=== PATIENT | female | born 1955 | race Caucasian/White ===

== ENCOUNTER 2018-08-16 18:00 | Emergency (ER) | payer OTHER ==
--- NOTE | 2018-08-16 20:23 | RAD REPORT ---
EXAM DESCRIPTION: Ozzie Single View08/16/2018 8:18 pm CLINICAL HISTORY: Chest pain COMPARISON: October 2017 FINDINGS: The lungs appear clear of acute infiltrate. The heart is normal size IMPRESSION: No acute abnormalities displayed
[2018-08-16] MEDS ORDERED: NA CHLORIDE 0.9% 1,000 ML ONE ×2 (20:27→21:12)
[2018-08-16 20:32] LABS: Urine Blood NEGATIVE (NEG); Urine Glucose TRACE (NEG); Urine Protein NEGATIVE (NEG); Urine pH 5.5 (5.0-7.0)
[2018-08-16 20:37] LABS: Absolute Lymphocytes (CBC) 3.4 K/uL (0.7-4.9); Absolute Neutrophil 9.8 K/uL (1.8-8.0); Basophils % 0.4 % (0-1.3); Eosinophils % 1.8 % (0-4.4); Hematocrit 41.9 % (36.0-45.0); Lymphocytes % 23.5 % (15.3-44.8); MCH 29.4 pg (27.0-35.0); MCV 87.7 fL (80-100); MPV 8.7 fL (7.6-11.3); Monocytes % 7.1 % (3.3-12.3); RBC Red Blood Cell Count 4.77 M/uL (3.86-4.86)
[2018-08-16 20:38] LABS: Barbiturates NEGATIVE (NEGATIVE); Benzodiazepines POSITIVE (NEGATIVE); Cocaine NEGATIVE (NEGATIVE); METHAMPHETAM NEGATIVE (NEGATIVE); Methadone NEGATIVE (NEGATIVE); Opiates NEGATIVE (NEGATIVE); Phencyclidine NEGATIVE (NEGATIVE); THC Cannibis NEGATIVE (NEGATIVE)
--- NOTE | 2018-08-16 20:38 | RAD REPORT ---
EXAM DESCRIPTION: CT - Head Brain Wo Cont - 08/16/2018 8:13 pm CLINICAL HISTORY: Confusion/alteration of awareness COMPARISON: None. TECHNIQUE: Computed axial tomography of the head was obtained. IV contrast was not requested. All CT scans are performed using dose optimization technique as appropriate and may include automated exposure control or mA/KV adjustment according to patient size. FINDINGS: Approximately 4 centimeter low-density areas are present within the posterior frontal/ tem poral lobes bilaterally. An intracranial bleed is not seen . The ventricles are normal in caliber. No extra-axial fluid collection is noted. Fluid within the sinuses/ mastoids is not seen. IMPRESSION: 4 centimeter bilateral low-density areas within the posterior frontal/ temporal lobes ma y represent acute/subacute infarcts. An encephalitis is a another consideration. MRI with contrast is recommended
[2018-08-16 20:41] LABS: Protime INR 0.99
[2018-08-16 21:09] LABS: ALT/SGPT 24 U/L (12-78); AST/SGOT 20 U/L (15-37); Albumin 3.7 g/dL (3.4-5.0); Alkaline Phosphatase 80 U/L (45-117); BUN Blood Urea Nitrogen 12 mg/dL (7-18); Bicarbonate 25 mmol/L (21-32); Bilirubin Direct < 0.1 mg/dL (0-0.2); Bilirubin Total 0.6 mg/dL (0.2-1.0); CKMB Creatine Kinase MB < 1.0 ng/mL (0.3-3.6); Creatine Phosphokinase 74 U/L (26-192); Glucose Level 247 mg/dL (74-106); Magnesium 2.1 mg/dL (1.8-2.4); NT PRO-BNP 43 pg/mL (<125); Potassium 4.3 mmol/L (3.5-5.1); Protein, Total 7.8 g/dL (6.4-8.2); Sodium Level 138 mmol/L (136-145); Troponin (Emerg Dept Use Only) < 0.02 ng/mL (0.0-0.045)
--- NOTE | 2018-08-16 21:21 | ER ---
Nurse's Notes [facility] Name: Eve Jose Age: 63 yrs Sex: Female : 1955 Arrival Date: 08/16/2018 Time: 18:07 Bed 23 Private MD: Diagnosis: Cerebral infarction Presentation: 08/16 18:08 Presenting complaint: EMS states: pt confused, does not seem to understand when mg2 questions are asked, can imitate conversations but does not understand any responses, daughter states that she noticed her mom acting differently two days ago. Transition of care: patient was not received from another setting of care. Onset of symptoms is unknown. Risk Assessment: Do you want to hurt yourself or someone else? Patient reports no desire to harm self or others. Initial Sepsis Screen: Does the patient meet any 2 criteria? No. Patient's initial sepsis screen is negative. Does the patient have a suspected source of infection? No. Patient's initial sepsis screen is negative. Care prior to arrival: None. 18:08 Method Of Arrival: [place] [facility] [place] Acuity: IVETT 3 mg2 20:54 Presenting complaint:. mg2 Triage Assessment: 18:27 General: Appears well groomed, well developed, well nourished, Behavior is anxious, mg2 confused. Pain: Denies pain. EENT: No signs and/or symptoms were reported regarding the EENT system. Neuro: Level of Consciousness is awake, alert, confused, Oriented to person. Neuro: Moves all extremities. Speech normal to slurred, does not seem to understand answers to questions, will initiate conversations but not comprehend responses. Facial symmetry appears normal, Pupils are PERRLA, Intact. Cardiovascular: Patient's skin is warm and dry. Respiratory: Airway is patent Respiratory effort is even, unlabored, Respiratory pattern is regular, symmetrical. GI: No signs and/or symptoms were reported involving the gastrointestinal system. : No signs and/or symptoms were reported regarding the genitourinary system. Derm: No signs and/or symptoms reported regarding the dermatologic system. Musculoskeletal: No signs and/or symptoms reported regarding the musculoskeletal system. Historical: - Home Meds: 18:27 Lantus 10 units in AM Sub-Q soln [Active]; levothyroxine oral [Active]; Lantus 30 units mg2 at night Sub-Q soln [Active]; Novolog 100 unit/mL Sub-Q soln 14 unit after meals [Active]; Methotrexate Sodium three Oral 3 tabs once wkly [Active]; folic acid 1 mg Oral tab 1 tab once daily [Active]; - Immunization history:: Adult Immunizations up to date. - Social history:: Smoking status: unknown. - Ebola Screening: : No symptoms or risks identified at this time. Screenin:32 Abuse screen: Denies threats or abuse. Nutritional screening: No deficits noted. mg2 Tuberculosis screening: No symptoms or risk factors identified. Fall Risk None identified. 20:48 The patient is alert, able to follow commands. occasionally slurred speach The patient mg2 is not exhibiting difficulty speaking. The patient is exhibiting difficulty understanding words. The patient is able to swallow own secretions with no drooling or need for suction. Patient tolerated one teaspoon of water. No drooling, immediate coughing, gurgling, or clearing of the throat was noted. The patient tolerated 90mL of water. No drooling, immediate coughing, gurgling, or clearing of the throat was noted. The patient passed the bedside swallow screening. Oral medications may be given as ordered. Contact Physician for further diet orders. Assessment: 18:32 Reassessment: No changes from previously documented assessment. mg2 18:35 Reassessment: Ems reports that pt pulled 2 IV's out, en route. mg2 20:13 Reassessment: staff has been under one on one care for the last hour and a half, very mg2 confused Dr Mulligan and Donovan came in room to calm pt and try to explain the POC, but pt did not understand and would not allow us to start an IV, finally we were able to persuade her and an ultra sound was used to obtain an IV in the right upper arm by ALYSHA Hill. 21:25 Reassessment: report called to ALYSHA Schofield at [facility]. mg2 21:57 Reassessment: No changes from previously documented assessment. Patient and/or family mg2 updated on plan of care and expected duration. Pain level reassessed. EMS here for transports. Vital Signs: 18:27 BP 128 / 75; Pulse 108; Resp 18; Temp 99.0(O); Pulse Ox 96% on R/A; mg2 20:29 BP 143 / 95; Pulse 131; Resp 20; Pulse Ox 96% on R/A; mg2 21:57 BP 129 / 94; Pulse 103; Resp 18; Pulse Ox 98% on R/A; mg2 ED Course: 18:07 Patient arrived in ED. mg2 18:08 Jeet Douglass, ALYSHA is Primary Nurse. mg2 18:10 Triage completed. mg2 18:27 Arm band placed on left wrist. mg2 18:32 Patient has correct armband on for positive identification. Bed in low position. Call mg2 light in reach. Side rails up X2. Adult w/ patient. Pulse ox on. NIBP on. 18:32 No provider procedures requiring assistance completed. mg2 18:39 Donovan Johnston PA is PHCP. [facility] 18:39 Jonathan Bianchi MD is Attending Physician. [facility] 18:44 Nurse Practitioner and/or Physician Straightening Machine Operator to see patient. mg2 20:[address] via wheelchair. mg2 20:05 Initial lab(s) drawn, by ED staff, sent to lab. First set of blood cultures drawn mg2 Second set of blood cultures drawn Urine collected: clean catch specimen, clear, X-ray(s) taken. Inserted saline lock: 18 gauge in right upper arm, using aseptic technique. ,using aseptic technique. by pool Hill RN Blood collected. 20:05 Inserted 18 gauge 10 cm midline to right upper basilic vein on first attempt with fc difficulty. Pt very anxious and confused. Line with good blood return and flushes well. 20:13 CT completed. Patient tolerated procedure well. bq 20:14 CT Head Brain wo Cont In Process Unspecified. EDMS 20:17 X-ray completed. Patient tolerated procedure well. bb2 20:18 XRAY Chest (1 view) In Process Unspecified. EDMS 21:25 Patient transferred, IV remains in place. mg2 21:57 One-on-one care X 90 minutes. mg2 Administered Medications: 20:28 Drug: NS 0.9% 1000 ml Route: IV; Rate: 1 bolus; Site: right upper arm; Delivery: mg2 Primary tubing; 21:09 Drug: NS 0.9% 1000 ml Route: IV; Rate: 1 bolus; Site: right upper arm; Delivery: mg2 Primary tubing; 21:22 Drug: Rocephin - (cefTRIAXone) 2 grams Route: IVPB; Infused Over: 30 mins; Site: right mg2 upper arm; Point of Care Testing: Blood Glucose: 18:27 Blood Glucose: 189 mg/dL; mg2 Ranges: Outcome: 21:20 ER care complete, transfer ordered by . pravin 21:24 Transferred by ground [facility] [place] [facility] [place]. mg2 21:24 Condition: stable 21:24 Instructed on the need for transfer. 21:58 Patient left the ED. mg2 Signatures: Dispatcher [employer] EDMS Donovan Johnston PA PA jmm Quilty, Betty bq Chretien, Felicia RN RN Nieves [facility] Jeet Douglass RN RN mg2 Corrections: (The following items were deleted from the chart) 20:55 18:08 Presenting complaint: EMS states: pt confused, does not seem to understand when mg2 questions are asked, can imitate conversations but does not understand any responses mg2
--- NOTE | 2018-08-16 21:21 | EDPHYS ---
Physician Documentation [facility] Name: Eve Jose Age: 63 yrs Sex: Female : 1955 Arrival Date: 08/16/2018 Time: 18:07 Bed 23 Private MD: ED Physician Jonathan Bianchi HPI: 08/16 18:48 This 63 yrs old Female presents to ER via EMS with complaints of Altered jmm Mental Status. 18:48 The patient presents with confusion. Onset: The symptoms/episode began/occurred 2 jmm day(s) ago. Possible causes: unknown. Associated signs and symptoms: Pertinent positives: confusion. Current symptoms: In the emergency department the patient's symptoms are unchanged from the initial presentation. Patient's baseline: Neuro: alert and fully oriented, Motor: no deficits, Ambulation: walks without assistance, Speech: normal. This is a 63 year old female with a history of DM, lupus that presents to the ED with confusion beginning approx 2 days ago according to the family. States that the patient gave her abnormal texts and stated the patient would not understand commands beginning yesterday worsening today. . Historical: - Home Meds: 18:27 Lantus 10 units in AM Sub-Q soln [Active]; levothyroxine oral [Active]; Lantus 30 units mg2 at night Sub-Q soln [Active]; Novolog 100 unit/mL Sub-Q soln 14 unit after meals [Active]; Methotrexate Sodium three Oral 3 tabs once wkly [Active]; folic acid 1 mg Oral tab 1 tab once daily [Active]; - Immunization history:: Adult Immunizations up to date. - Social history:: Smoking status: unknown. - Ebola Screening: : No symptoms or risks identified at this time. ROS: 21:15 Neuro: Positive for altered mental status. jmm 21:15 Unable to obtain ROS due to altered mental status. Exam: 21:15 Head/Face: atraumatic. Chest/axilla: Normal chest wall appearance and motion. jmm 21:15 Constitutional: The patient appears awake, anxious. 21:15 Cardiovascular: Rate: tachycardic. 21:15 Respiratory: the patient does not display signs of respiratory distress, Respirations: normal, Breath sounds: are clear throughout. 21:15 Abdomen/GI: Inspection: abdomen appears normal, Bowel sounds: normal, Palpation: abdomen is soft and non-tender, in all quadrants. 21:15 Back: ROM is normal. 21:15 Musculoskeletal/extremity: ROM: intact in all extremities. 21:15 Skin: Appearance: Color: normal in color, petechiae, not noted. 21:15 Neuro: Orientation: Not oriented to person, time, Mentation: confused, unable to follow commands, responsive to pain, Memory: unable to test, Motor: moves all fours. 21:15 Psych: Behavior/mood is anxious. Vital Signs: 18:27 BP 128 / 75; Pulse 108; Resp 18; Temp 99.0(O); Pulse Ox 96% on R/A; mg2 20:29 BP 143 / 95; Pulse 131; Resp 20; Pulse Ox 96% on R/A; mg2 21:57 BP 129 / 94; Pulse 103; Resp 18; Pulse Ox 98% on R/A; mg2 MDM: 18:48 Patient medically screened. [facility] 20:45 Data reviewed: vital signs, nurses notes, radiologic studies, CT scan. ED course: TPA [facility] NOT ADMINISTERED. OUTSIDE OF WINDOW. ONSET OF SYMPTOMS 2 DAYS AGO. 21:14 Counseling: I had a detailed discussion with the patient and/or guardian regarding: the [facility] historical points, exam findings, and any diagnostic results supporting the discharge/admit diagnosis, radiology results, the need to transfer to another facility. ED course: I discussed the patient with Dr. Garcia whom will evaluate the patient. Patient accepted by Dr. Freeman. Dr. Mulligan was at bedside to evaluate the patient. Recommends 2 grams rocephin IV. . 08/16 18:50 Order name: Basic Metabolic Panel [facility] 08/16 18:50 Order name: CBC with Diff; Complete Time: 20:46 [facility] 08/16 18:50 Order name: Ckmb [facility] 08/16 18:50 Order name: CPK [facility] 08/16 18:50 Order name: LFT's; Complete Time: 21:11 [facility] 08/16 18:50 Order name: Magnesium; Complete Time: 21:11 [facility] 08/16 18:50 Order name: NT PRO-BNP [facility] 08/16 18:50 Order name: PT-INR; Complete Time: 20:43 [facility] 08/16 18:50 Order name: Ptt, Activated; Complete Time: 20:43 [facility] 08/16 18:50 Order name: Troponin (emerg Dept Use Only); Complete Time: 21:11 [facility] 08/16 18:50 Order name: Urine Drug Screen; Complete Time: 20:41 [facility] 08/16 18:51 Order name: Basic Metabolic Panel; Complete Time: 21:11 [facility] 08/16 18:51 Order name: CKMB Creatine Kinase MB; Complete Time: 21:11 [facility] 08/16 18:51 Order name: Creatine Phosphokinase; Complete Time: 21:11 [facility] 08/16 18:50 Order name: XRAY Chest (1 view); Complete Time: 20:25 [facility] 08/16 18:50 Order name: EKG; Complete Time: 18:51 [facility] 08/16 18:50 Order name: CT Head Brain wo Cont; Complete Time: 20:41 [facility] 08/16 18:51 Order name: NT PRO-BNP; Complete Time: 21:11 [facility] 08/16 18:54 Order name: TSH; Complete Time: 21:11 [facility] 08/16 19:30 Order name: AMMONIA; Complete Time: 20:46 08/16 19:30 Order name: Blood Culture Adult (2) 08/16 19:30 Order name: Procalcitonin 08/16 19:30 Order name: ABG 08/16 20:05 Order name: Lactate; Complete Time: 20:46 08/16 20:22 Order name: Urine Dipstick--Ancillary (enter results) 2 08/16 21:13 Order name: T3 Free [facility] 08/16 21:13 Order name: T4 Free [facility] 08/16 18:50 Order name: Cardiac monitoring; Complete Time: 19:08 [facility] 08/16 18:50 Order name: EKG - Nurse/Tech; Complete Time: 19:08 [facility] 08/16 18:50 Order name: IV Saline Lock; Complete Time: 20:13 [facility] 08/16 18:50 Order name: Labs collected and sent; Complete Time: 20:13 [facility] 08/16 18:50 Order name: O2 Per Protocol; Complete Time: 19:08 [facility] 08/16 18:50 Order name: O2 Sat Monitoring; Complete Time: 19:08 [facility] 08/16 18:50 Order name: Urine Dipstick-Ancillary (obtain specimen); Complete Time: 20:13 [facility] Administered Medications: 20:28 Drug: NS 0.9% 1000 ml Route: IV; Rate: 1 bolus; Site: right upper arm; Delivery: mg2 Primary tubing; 21:09 Drug: NS 0.9% 1000 ml Route: IV; Rate: 1 bolus; Site: right upper arm; Delivery: mg2 Primary tubing; 21:22 Drug: Rocephin - (cefTRIAXone) 2 grams Route: IVPB; Infused Over: 30 mins; Site: right mg2 upper arm; Point of Care Testing: Blood Glucose: 18:27 Blood Glucose: 189 mg/dL; mg2 Ranges: Critical Glucose Levels:Adult <50 mg/dl or >400 mg/dl <40 mg/dl or >180 mg/dl Disposition: 08/16/18 21:[address] [facility]. Diagnosis is Cerebral infarction. - Reason for transfer: Higher level of care. - Accepting physician is Lydia. - Condition is Stable. - Problem is new. - Symptoms are unchanged. Addendum: 08/18/2018 07:55 Co-signature as Attending Physician, Jonathan Bianchi MD I agree with the assessment and w a plan of care. Signatures: Dispatcher [employer] EDMS Donovan Johnston PA PA Rodolfo Capone MD MD gs Appiah, William, MD MD wa Gardose, Michele, RN RN mg2 Corrections: (The following items were deleted from the chart) 08/16 21:58 21:20 08/16/2018 21:[address] [facility]. Diagnosis is mg2 Cerebral infarction. Reason for transfer: Higher level of care. Accepting physician is Lydia. Condition is Stable. Problem is new. Symptoms are unchanged. [facility]
[2018-08-16] MEDS ORDERED: CEFTRIAXONE/SWI 1gm 2 GM/20 ML SYR ONE (21:24)
[2018-08-16 22:02] LABS: T3 Free 2.8 pg/mL (2.18-3.98)
--- NOTE | 2018-08-18 06:55 | EKG ---
Test Date: 2018-08-16 Test Time: 18:56:47 Operations Consultant: MG MEASUREMENT RESULTS: Intervals: Rate: 100 FL: 146 QRSD: 80 QT: 348 QTc: 448 [place]: P: 53 FL: 146 QRS: 25 T: 46 INTERPRETIVE STATEMENTS: Sinus rhythm with premature atrial complexes Cannot rule out Anterior infarct, age undetermined Abnormal ECG Compared to ECG 10/29/2017 22:43:54 Atrial premature complex(es) now present Myocardial infarct finding still present Electronically Signed On 08-18-18 06:51:32 CDT by Shakir Sánchez
== END 2018-08-16 21:58 | disposition short-term general hospital (02) ==
LOC: ER 18:00
DX: I63.9 Cerebral infarction, unspecified (principal)
CPT/HCPCS: 36415; 70450; 71045; 80048; 80076; 80307 ×8; 81003; 82140; 82550; 82553; 83605; 83735; 83880; 84145; 84439; 84443; 84481; 84484; 85025; 85610; 85730; 87040 ×2; 93005; J0696; J7030 ×2; 82962; 96374; 99285

== ENCOUNTER 2018-10-03 20:39 | Emergency (ER) | payer OTHER ==
--- OUTSIDE RECORDS SUMMARY | 2018-10-03 20:42 | XMS REPORT | Clinical Summary ---
:1955 Author Organization [facility] Address [address] [place] [address] Care Team Providers Name Role Phone Unavailable Primary Care Provider Unavailable Allergies No Known Allergies Medications Medication Sig Dispensed Refills Start Date End Date Status methotrexate 2.5 MG Take by mouth 0 Active tablet once a week Take 3 tabs every . levothyroxine Take 137 mcg by 0 Active (SYNTHROID, mouth Every LEVOTHROID) 137 MCG morning on an tablet empty stomach Take 2 tabs in a.m . predniSONE (DELTASONE) Take 10 mg by 0 Active 10 MG tablet mouth daily. folic acid (FOLVITE) 1 Take 1 mg by 0 Active MG tablet mouth daily. aspirin 81 MG chewable Take 1 tablet 30 tablet 2 08/21/2018 11/19/2018 Active tablet (81 mg total) by mouth daily for 90 days. atorvastatin (LIPITOR) Take 1 tablet 30 tablet 2 08/21/2018 11/19/2018 Active 80 MG tablet (80 mg total) by mouth daily for 90 days. Active Problems Problem Noted Date Left temporal lobe infarction 08/20/2018 Disorientation 08/17/2018 Encounters Date Type Specialty Care Team Description 08/20/2018 Surgery Virtual, Surgeon PROCEDURE DONE OUTSIDE OR 08/19/2018 Anesthesia Event Mario Smith MD 08/16/2018 - Hospital Encounter General Internal Lydia, [place] Disorientation; 08/20/2018 Medicine MD Valentina Type 2 diabetes mellitus with complication, without long-term current use of insulin (HCC); Adio, Titilola Lupus erythematosus, unspecified form; MD Dann Delirium due to another medical condition; Liset Boss Aphasia; MD Cassidy Abnormal MRI of head; Acute encephalopathy; Acute ischemic left MCA stroke (HCC); History of ischemic right MCA stroke after 10/02/2017 Social History Tobacco Use Types Packs/Day Years Used Date Former Smoker Sex Assigned at Date Recorded Not on file Job Start Date Occupation Industry Not on file Not on file Not on file Travel History Travel Start Travel End No recent travel history available. Last Filed Vital Signs Vital Sign Reading Time Taken Blood Pressure 121/64 08/20/2018 3:41 PM CDT Pulse 190 08/20/2018 3:41 PM CDT Temperature 36.2 C (97.2 F) 08/20/2018 3:41 PM CDT Respiratory Rate 20 08/20/2018 3:41 PM CDT Oxygen Saturation 93% 08/20/2018 3:41 PM CDT Inhaled Oxygen Concentration - - Weight 104.8 kg (231 lb 1.6 oz) 08/17/2018 2:00 AM CDT Height 177.8 cm (5' 10") 08/17/2018 2:00 AM CDT Body Mass Index 33.16 08/17/2018 2:00 AM CDT Plan of Treatment Not on file Procedures Procedure Name Priority Date/Time Associated Comments Diagnosis RHYTHM STRIP - SCAN 08/22/2018 10:00 AM CDT POCT-GLUCOSE METER Routine 08/20/2018 9:09 Results for this PM CDT procedure are in the results section. FL GUIDED LUMBAR Routine 08/20/2018 12:00 Results for this PUNCTURE DIAG PM CDT procedure are in the results section. CYTOLOGY AP Routine 08/20/2018 11:36 Results for this AM CDT procedure are in the results section. OLIGOCLONAL BANDS Routine 08/20/2018 11:36 Results for this AM CDT procedure are in the results section. IGG INDEX (CSF + Routine 08/20/2018 11:36 BLOOD) AM CDT MISCELLANEOUS LAB Routine 08/20/2018 11:36 ORDER AM CDT CRYPTOCOCCAL ANTIGEN, Routine 08/20/2018 11:36 Results for this CSF AM CDT procedure are in the results section. BIANCA INK PREP Routine 08/20/2018 11:36 Results for this AM CDT procedure are in the results section. MISCELLANEOUS LAB Routine 08/20/2018 11:36 ORDER AM CDT WEST NILE VIRUS, CSF, Routine 08/20/2018 11:36 Results for this IGG & IGM AM CDT procedure are in the results section. VDRL, CSF Routine 08/20/2018 11:36 Results for this AM CDT procedure are in the results section. VARICELLA ZOSTER PCR, Routine 08/20/2018 11:36 Results for this QUALITATIVE AM CDT procedure are in the results section. ENTEROVIRUS PCR, Routine 08/20/2018 11:36 Results for this QUALITATIVE AM CDT procedure are in the results section. HSV 1/2 PCR, Routine 08/20/2018 11:36 Results for this QUALITATIVE AM CDT procedure are in the results section. CSF CELL COUNT Routine 08/20/2018 11:36 Results for this W/DIFFERENTIAL AM CDT procedure are in the results section. CSF CULTURE + GRAM Routine 08/20/2018 11:36 Results for this STAIN AM CDT procedure are in the results section. PROTEIN, CSF Routine 08/20/2018 11:36 Results for this AM CDT procedure are in the results section. GLUCOSE, CSF Routine 08/20/2018 11:36 Results for this AM CDT procedure are in the results section. MR BRAIN WITHOUT & ALICIA 08/20/2018 10:52 Results for this WITH IV CONTRAST AM CDT procedure are in the results section. PT/APTT Routine 08/20/2018 8:58 Results for this AM CDT procedure are in the results section. PROCEDURE DONE OUTSIDE 08/20/2018 8:00 Confusion OR AM CDT POCT-GLUCOSE METER Routine 08/20/2018 7:44 Results for this AM CDT procedure are in the results section. POCT-GLUCOSE METER Routine 08/20/2018 3:46 Results for this AM CDT procedure are in the results section. POCT-GLUCOSE METER Routine 08/19/2018 8:52 Results for this PM CDT procedure are in the results section. POCT-GLUCOSE METER Routine 08/19/2018 4:50 Results for this PM CDT procedure are in the results section. EEG AWAKE AND DROWSY Routine 08/19/2018 1:26 Results for this PM CDT procedure are in the results section. POCT-GLUCOSE METER Routine 08/19/2018 12:15 Results for this PM CDT procedure are in the results section. POCT-GLUCOSE METER Routine 08/19/2018 8:28 Results for this AM CDT procedure are in the results section. POCT-GLUCOSE METER Routine 08/18/2018 9:48 Results for this PM CDT procedure are in the results section. ECG 12-LEAD Routine 08/18/2018 9:38 Results for this PM CDT procedure are in the results section. POCT-GLUCOSE METER Routine 08/18/2018 7:38 Results for this AM CDT procedure are in the results section. CBC W/PLT COUNT & AUTO Routine 08/18/2018 3:57 Results for this DIFFERENTIAL AM CDT procedure are in the results section. VITAMIN B12 Routine 08/18/2018 3:57 Results for this AM CDT procedure are in the results section. BASIC METABOLIC PANEL Routine 08/18/2018 3:57 Results for this (7) AM CDT procedure are in the results section. CBC W/PLT COUNT & AUTO Routine 08/18/2018 3:57 Results for this DIFFERENTIAL AM CDT procedure are in the results section. HEMOGLOBIN A1C Routine 08/18/2018 3:57 Results for this AM CDT procedure are in the results section. POCT-GLUCOSE METER Routine 08/17/2018 9:34 Results for this PM CDT procedure are in the results section. XR CHEST 2 VIEWS Routine 08/17/2018 9:07 Results for this PM CDT procedure are in the results section. POCT-GLUCOSE METER Routine 08/17/2018 5:12 Results for this PM CDT procedure are in the results section. URINALYSIS MICROSCOPIC Routine 08/17/2018 12:02 Results for this PM CDT procedure are in the results section. URINALYSIS WITH Routine 08/17/2018 12:02 Results for this MICROSCOPIC IF PM CDT procedure are in INDICATED the results section. POCT-GLUCOSE METER Routine 08/17/2018 11:59 Results for this AM CDT procedure are in the results section. T4, FREE Routine 08/17/2018 9:43 Results for this AM CDT procedure are in the results section. LACTIC ACID, VENOUS, Routine 08/17/2018 9:43 Results for this WHOLE BLOOD AM CDT procedure are in the results section. TSH/FREE T4 IF Routine 08/17/2018 9:43 Results for this INDICATED AM CDT procedure are in the results section. AMMONIA Routine 08/17/2018 9:43 Results for this AM CDT procedure are in the results section. HEPATITIS C ANTIBODY Routine 08/17/2018 9:43 Results for this AM CDT procedure are in the results section. RPR Routine 08/17/2018 9:43 Results for this AM CDT procedure are in the results section. HIV-1 ANTIGEN WITH Routine 08/17/2018 9:43 Results for this HIV-1/2 ANTIBODY AM CDT procedure are in the results section. HEPATITIS B PANEL Routine 08/17/2018 9:43 Results for this AM CDT procedure are in the results section. HEPATITIS A PANEL Routine 08/17/2018 9:43 Results for this AM CDT procedure are in the results section. HEPATIC FUNCTION PANEL Routine 08/17/2018 9:43 Results for this AM CDT procedure are in the results section. URINE CULTURE Routine 08/17/2018 9:32 Results for this AM CDT procedure are in the results section. POCT-GLUCOSE METER Routine 08/17/2018 9:19 Results for this AM CDT procedure are in the results section. POCT-GLUCOSE METER Routine 08/17/2018 6:15 Results for this AM CDT procedure are in the results section. DRUG SCREEN, URINE, Routine 08/17/2018 4:39 COMPREHENSIVE AM CDT BLOOD CULTURE Routine 08/17/2018 4:37 Results for this AM CDT procedure are in the results section. CBC W/PLT COUNT & AUTO Routine 08/17/2018 4:36 Results for this DIFFERENTIAL AM CDT procedure are in the results section. HEMOGLOBIN A1C Routine 08/17/2018 4:36 Results for this AM CDT procedure are in the results section. CBC W/PLT COUNT & AUTO Routine 08/17/2018 4:36 Results for this DIFFERENTIAL AM CDT procedure are in the results section. PHOSPHORUS Routine 08/17/2018 4:36 Results for this AM CDT procedure are in the results section. MAGNESIUM Routine 08/17/2018 4:36 Results for this AM CDT procedure are in the results section. LIPID PANEL Routine 08/17/2018 4:36 Results for this AM CDT procedure are in the results section. BASIC METABOLIC PANEL Routine 08/17/2018 4:36 Results for this (7) AM CDT procedure are in the results section. POCT-GLUCOSE METER Routine 08/16/2018 11:11 Results for this PM CDT procedure are in the results section. after 10/02/2017 Results RHYTHM STRIP - SCAN (08/22/2018 10:00 AM CDT) Narrative Performed At POC-Glucose meter (08/20/2018 9:09 PM CDT)Only the most recent of15 resultswithin the time period is included. POC-Glucose Meter 450 (HH)Comment: TESTED 70 - 110 mg/dL [facility] [address] [facility] [id number] Specimen Blood Performing Organization Address City/State/Zipcode Phone Number [address] [address] CENTER FL Lumbar Puncture Image-Guided (08/20/2018 12:00 PM CDT) Narrative Performed At FINAL REPORT [facility] REFERRING PHYSICIAN: Liset Boss M.D. PROCEDURE: Fluoroscopy guided diagnostic lumbar puncture RADIOLOGIST: Ya Archer M.D. INDICATION: Delirium, encephalitis DESCRIPTION OF PROCEDURE: The patient was prepped and draped on the fluoroscopy table following the usual sterile fashion for lumbar puncture. 1% lidocaine was administered for local anesthesia. Using fluoroscopic guidance, a 22-gauge spinal needle was advanced into the thecal sac at the L3-4 level. Approximately 30 cc of clear spinal fluid was removed and sent to the laboratory for the requested studies. There were no periprocedural complications. Fluoroscopy time: 0.2 minutes, 1 fluoroscopic image IMPRESSION: Successful fluoroscopy guided diagnostic lumbar puncture. Signed: Ya Archer MD Report Verified Date/Time:08/20/2018 15:12:33 Reading Location: [address] Neuro Reading Room Procedure Note Interface, External Ris In - 08/20/2018 3:14 PM CDT FINAL REPORT REFERRING PHYSICIAN: Liset Boss M.D. PROCEDURE: Fluoroscopy guided diagnostic lumbar puncture RADIOLOGIST: Ya Archer M.D. INDICATION: Delirium, encephalitis DESCRIPTION OF PROCEDURE: The patient was prepped and draped on the fluoroscopy table following the usual sterile fashion for lumbar puncture. 1% lidocaine was administered for local anesthesia. Using fluoroscopic guidance, a 22-gauge spinal needle was advanced into the thecal sac at the L3-4 level. Approximately 30 cc of clear spinal fluid was removed and sent to the laboratory for the requested studies. There were no periprocedural complications. Fluoroscopy time: 0.2 minutes, 1 fluoroscopic image IMPRESSION: Successful fluoroscopy guided diagnostic lumbar puncture. Signed: Ya Archer MD Report Verified Date/Time: 08/20/2018 15:12:33 Reading Location: [facility] [id number] Neuro Reading Room Performing Organization Address City/[facility] Phone Number GE RIS IgG Index (CSF + Blood) (08/20/2018 11:36 AM CDT) Scan Result [facility] Specimen Cerebrospinal Fluid - CSF Narrative Performed At Performing Organization Address [facility] Phone Number [facility] [place] [address] [facility]OR[facility] [address] [facility] Varicella zoster PCR, qualitative (08/20/2018 11:36 AM CDT) Source-Body Site CEREBROSPINAL FLUID [facility] VZV DNA,Qual.PCR NOT DETECTED [facility] Comment: INCORPORATED REFERENCE RANGE: NOT DETECTED This test was developed and its analytical performance characteristics have been determined by [facility]. It has not been cleared or approved by FDA. This assay has been validated pursuant to the CLIA regulations and is used for clinical purposes. Specimen Cerebrospinal Fluid - CSF Narrative Performed At Performing Lab [facility] [address] [place] [address] Nyla Puente MD Performing Organization Address City/[facility] Phone Number [facility] [place] [address] INCORPORATED [address] [facility] Bianca ink prep (08/20/2018 11:36 AM CDT) Bianca Ink No encapsulated yeast seen No encapsulated yeast seen [facility] Specimen Cerebrospinal Fluid - CSF Performing Organization Address City/[facility] Phone Number [facility] [address] [place] [address] CENTER Enterovirus PCR, qualitative (08/20/2018 11:36 AM CDT) Source-Body Site CEREBROSPINAL FLUID [facility] Enterovirus Rt-Pcr NOT DETECTED [facility] Comment: INCORPORATED This assay is designed to detect multiple strains of Enterovirus, including Enterovirus D68. REFERENCE RANGE:NOT DETECTED This test was developed and its analytical performance characteristics have been determined by [facility]. It has not been cleared or approved by FDA. This assay has been validated pursuant to the CLIA regulations and is used for clinical purposes. Specimen Cerebrospinal Fluid - CSF Narrative Performed At Performing Lab [facility] [address] [place] [address] Nyla Puente MD Performing Organization Address City/[facility]/Zipcode Phone Number [facility] [address] INCORPORATED [address] [facility] paraneoplastic panel (08/20/2018 11:36 AM CDT)Only the most recent of2 resultswithin the time period is included. Scan Result [facility] Specimen Cerebrospinal Fluid - CSF Narrative Performed At Performing Organization Address City/[facility] Phone Number [facility] [address] [place], [place] Oligoclonal bands (08/20/2018 11:36 AM CDT) Oligoclonal Bands, CSF BANDS NOTED (A) NO BANDS [facility] Comment: INCORPORATED The patient's CSF contains >5 well defined gamma restriction bands that are not present in the patient's corresponding serum sample. These bands indicate abnormal synthesis of gammaglobulins in the central nervous system. This finding is supportive evidence of central nervous system inflammation, multiple sclerosis, or infection, and should be interpreted in conjunction with all clinical and laboratory data pertaining to this patient. Oligoclonal bands are present in the CSF of more than 85% of patients with clinically definite multiple sclerosis (MS). To distinguish between oligoclonal bands in the CSF due to a peripheral gammopathy and oligoclonal bands due to local production in the [employer], serum and CSF should be tested simultaneously. Oligoclonal bands can however be observed in a variety of other diseases, e.g., subacute sclerosing panencephalitis, inflammatory polyneuropathy, [employer] lupus, and brain tumors and infarctions. The clinical significance of a numerical band count, determined by isoelectric focusing, has not been definitively defined. The data should be interpreted in conjunction with all pertinent clinical and laboratory data for this patient. FINAL RESOLUTION [facility] Specimen Cerebrospinal Fluid - CSF Narrative Performed At Performing Lab [facility] EZ [facility] [address] [place] [address] Marko Fleming MD, PhD, CARLO Performing Organization Address City/State/[facility] Phone Number [facility] [place] [address] INCORPORATED [address] [facility] Cryptococcal antigen, CSF (08/20/2018 11:36 AM CDT) Cryptococcal Antigen, CSF Negative Negative, Interference [facility] Specimen Cerebrospinal Fluid - CSF Performing Organization Address [facility] Phone Number [address] [address] CENTER HSV 1/2 PCR, Qualitative (08/20/2018 11:36 AM CDT) HSV, PCR NEGATIVE NEGATIVE [facility] Specimen Cerebrospinal Fluid - CSF Narrative Performed At Herpes Simplex Virus (HSV) not detected. [facility] These assays were performed by real-time PCR utilizing fluorogenic hydrolysis probe technology for the detection of Herpes Simplex Virus-1 and/or Herpes Simplex Virus-2 in approved specimens.A 154 base pair region of the HSV-1 and HSV-2 UL5 gene is amplified, and typing is achieved by using type specific probes.An internal control is used to confirm PCR amplification.Genetic variation and other factors can affect the accuracy of nucleic acid testing; therefore, the results should be interpreted in light of clinical data. This test was developed and its performance characteristics determined by the [facility] Pathology Department, Section of Molecular Pathology.It has not been cleared or approved by the U.S. Food and Drug Administration (FDA), as FDA approval is not required for clinical use of the test.Validation was done as required by the Clinical Laboratory Amendments of 1988. Performing Organization Address City/[facility] Phone Number [place] [phone] [place] [address] [place] CSF culture + gram stain (08/20/2018 11:36 AM CDT) Result No growth [facility] Gram Stain Result No White blood cells seen [facility] Gram Stain Result No organisms seen [facility] Specimen Cerebrospinal Fluid Performing Organization Address [facility] Phone Number [address] [address] [phone] [place] CSF cell count with differential (08/20/2018 11:36 AM CDT) Appearance Clear Clear [facility] Color Colorless Colorless [facility] RBCs 1 0 - 5 /cu mm [facility] WBCs 6 (H) <=5 /cu mm [facility] RBCs Fresh? 100% Fresh [facility] # of Cells Diff'd 10 [facility] % Neutros 0 0 - 5 % [facility] % Lymphs 70 40 - 80 % [facility] % Monos 30 15 - 45 % [facility] % Eos 0 <=0 % [facility] % Baso 0 <=0 % [facility] Tube Number EDTA (Tube #4) [facility] Specimen Cerebrospinal Fluid - CSF, tube 4 Performing Organization Address [facility] Phone Number [address] [address] [place] West Nile Virus, CSF, IgG and IgM (08/20/2018 11:36 AM CDT) West Nile Ab,Igm <0.90 [facility] Comment: INCORPORATED REFERENCE RANGE: <0.90 INTERPRETIVE CRITERIA <0.90 Antibody not detected 0.90 - 1.10 Equivocal >1.10 Antibody detected West Nile virus (WNV) IgM is usually detectable in CSF from WNV-infected patients with encephalitis or meningitis at the time of clinical presentation. Because IgM antibody does not readily cross the blood-brain barrier, IgM antibody in CSF strongly suggests acute central nervous system infection. WNV antibody results from CSF should be in interpreted with caution. Possible complicating factors include low levels of antibody found in CSF, passive transfer of antibodies from blood, and contamination via bloody spinal taps. Antibodies induced by other flavivirus infections (e.g. Dengue virus, [place] encephalitis virus) may show cross-reactivity with WNV. Specimen Cerebrospinal Fluid - CSF Narrative Performed At Performing Lab [facility] [address] [place] [phone] H Brenda Puente MD Performing Organization Address City/[facility] Phone Number [facility] [address] [place] [address] VDRL, CSF (08/20/2018 11:36 AM CDT) VDRL, CSF Nonreactive [facility] Specimen Cerebrospinal Fluid - CSF Performing Organization Address [facility] Phone Number [address] [phone] CENTER Protein, CSF (08/20/2018 11:36 AM CDT) Protein, CSF 50 (H) 15 - 45 mg/dL [facility] Specimen Cerebrospinal Fluid - CSF Performing Organization Address [facility] Phone Number [address] [address] CENTER Glucose, CSF (08/20/2018 11:36 AM CDT) Glucose, CSF 135 (H) 40 - 70 mg/dL [facility] Specimen Cerebrospinal Fluid - CSF Performing Organization Address [facility] Phone Number [address] [address] CENTER Cytology (08/20/2018 11:36 AM CDT) Case Report Medical Cytology Report Case: [id number] [facility] Authorizing Provider:Liset Boss MDCollected: 08/20/2018 1136 [facility] Ordering Location: [address] Received: 08/20/2018 1551 Service Pathologist: Claire Puckett Specimen:CSF DIAGNOSIS CEREBROSPINAL FLUID (CYTOSPINS): [facility] - NEGATIVE FOR MALIGNANCY [facility] Signing Pathologist Direct Phone Line: [phone] CPT Code(s) 498[address] [facility] CLINICAL DATA Altered mental status, [facility] history of lupus [facility] SPECIMEN SOURCE CEREBROSPINAL FLUID (CYTOSPINS) [facility] GROSS DESCRIPTION 1 ml colorless; 2 cytospins [facility] Collected: [id number] [facility] Received: [id number] STATEMENT OF ADEQUACY Satisfactory [facility] Technical component was [facility] performed at [place], Department of [facility] Pathology, [address] [place] [id number], Professional component was [facility] performed at [place], Department of [facility] Pathology, [address] [place] [address], Specimen Cerebrospinal Fluid - CSF Narrative Performed At Performing Organization Address City/State/Zipcode Phone Number [address] [address] [phone] [place] MR brain without & with IV contrast (08/20/2018 10:52 AM CDT) Narrative Performed At FINAL REPORT [facility] MRI Brain with and without contrast 08/20/2018 1:26 PM CLINICAL HISTORY: Confusion/delirium, altered LOC, unexplained TECHNIQUE: Multiplanar, multisequence MR imaging of the brain was performed, utilizing the following imaging sequences: Axial T1, T2, FLAIR, GRE, DWI/ADC; sagittal T1; postcontrast axial, sagittal, and coronal T1. COMPARISON: None available. FINDINGS: There is a moderate volume acute nonhemorrhagic infarct in the left temporal lobe. There is a moderate volume subacute infarct with evidence for prior petechial hemorrhage in the right temporal lobe. There is no hematoma, mass, hydrocephalus, or extra-axial collection. There is a tiny chronic infarct in the cerebellar vermis. There is rare chronic microvascular ischemia in the supratentorial white matter. Normal appearing flow-voids are present within the major intracranial vascular structures. The sellar and pineal regions are normal. The craniovertebral junction is intact. The orbits, face, and skull base are without worrisome finding. IMPRESSION: 1. 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 2. Subacute and chronic ischemic changes as discussed. Signed: Chuckie Pyle MD Report Verified Date/Time:08/20/2018 13:28:43 Reading Location: [facility] Reading Room Procedure Note Interface, External Ris In - 08/20/2018 1:30 PM CDT FINAL REPORT MRI Brain with and without contrast 08/20/2018 1:26 PM CLINICAL HISTORY: Confusion/delirium, altered LOC, unexplained TECHNIQUE: Multiplanar, multisequence MR imaging of the brain was performed, utilizing the following imaging sequences: Axial T1, T2, FLAIR, GRE, DWI/ADC; sagittal T1; postcontrast axial, sagittal, and coronal T1. COMPARISON: None available. FINDINGS: There is a moderate volume acute nonhemorrhagic infarct in the left temporal lobe. There is a moderate volume subacute infarct with evidence for prior petechial hemorrhage in the right temporal lobe. There is no hematoma, mass, hydrocephalus, or extra-axial collection. There is a tiny chronic infarct in the cerebellar vermis. There is rare chronic microvascular ischemia in the supratentorial white matter. Normal appearing flow-voids are present within the major intracranial vascular structures. The sellar and pineal regions are normal. The craniovertebral junction is intact. The orbits, face, and skull base are without worrisome finding. IMPRESSION: 1. 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 2. Subacute and chronic ischemic changes as discussed. Signed: Chuckie Pyle MD Report Verified Date/Time: 08/20/2018 13:28:43 Reading Location: [facility] Radiology Reading Room Performing Organization Address City/State/Zipcode Phone Number ALAIYAH MEDRANO PT/aPTT (08/20/2018 8:58 AM CDT) Protime 13.5 11.7 - 14.7 seconds [facility] INR 1.0 <=5.9 [facility] PTT 22.8 22.5 - 36.0 seconds [facility] Specimen Blood - Line, Venous Narrative Performed At [facility] RECOMMENDED COUMADIN/WARFARIN INR THERAPY RANGES STANDARD DOSE: 2.0 - 3.0 Includes: PROPHYLAXIS for venous thrombosis, systemic embolization; TREATMENT for venous thrombosis and/or pulmonary embolus. HIGH RISK: Target INR is 2.5-3.5 for patients with mechanical heart valves. Performing Organization Address City/[facility] Phone Number [address] [address] [phone] CENTER EEG AWAKE AND DROWSY (08/19/2018 1:26 PM CDT) Narrative Performed At Neurophysiology EEG Report AALIYAH MEDRANO Patient Name: Eve Jose DATE OF EE08/19/18 DATE OF REPORT: 08/19/18 ACC: [id number] EE Start time: 1305 PM Stop time: 1326 PM ICD-10: R41.82 Altered Mental Status CPT Code: 03385 (Awake and Asleep EEG) HISTORY: 53 year old female with DM and lupus presenting with 2 days of waxing and waning AMS with bilateral lesions found on imaging concerning for infarcts vs encephalitis. She was referred for EEG to assess for epileptiform abnormalities. MEDICATIONS THAT COULD AFFECT EEG: Valium TECHNICAL SUMMARY: This is a digital video EEG recorded with 32 input channels reviewed with bipolar and referential montages using the modified combinatorial system nomenclature. DESCRIPTION OF RECORD: During the stimulated state the patient remained very drowsy and the background consisted of mixed very low and low amplitude 4-7 Hz and 8-10 Hz activities.Diffuse very low amplitude beta frequency activity was also seen. There was no clear sustained posterior dominant rhythm seen. Stage I sleep consisted of vertex sharp transients and POSTS. Stage 2 sleep was reached characterized by symmetric and synchronous frontocentral sleep spindles and k-complexes. HV: Hyperventilation was not performed. PHOTIC STIMULATION: Flash stimulation was done from 1-30 Hz during stage II sleep; photic driving was not seen; photoparoxysmal responses were absent. IMPRESSION: Normal EEG recorded in drowsiness and sleep CLINICAL CORRELATION: This study is normal for the drowsy and asleep states. Full wakefulness was not recorded and cannot be commented upon. An EEG without epileptiform discharges does not exclude the possibility of epilepsy. If the clinical suspicion of epilepsy remains, consider additional EEG recordings. There were no prior EEG reports available for comparison. Cecelia Junior, PGY4 [facility] Department of Neurology Gilda Chandra MD Epilepsy Fellow [facility] Neurophysiology Service Daysi Marques MD Epilepsy Attending Procedure Note Interface, External Ris In - 08/19/2018 4:34 PM CDT Neurophysiology EEG Report Patient Name: Eve Jose DATE OF EE08/19/18 DATE OF REPORT: 08/19/18 ACC: [id number] EE Start time: 1305 PM Stop time: 1326 PM ICD-10: R41.82 Altered Mental Status CPT Code: 45036 (Awake and Asleep EEG) HISTORY: 53 year old female with DM and lupus presenting with 2 days of waxing and waning AMS with bilateral lesions found on imaging concerning for infarcts vs encephalitis. She was referred for EEG to assess for epileptiform abnormalities. MEDICATIONS THAT COULD AFFECT EEG: Valium TECHNICAL SUMMARY: This is a digital video EEG recorded with 32 input channels reviewed with bipolar and referential montages using the modified combinatorial system nomenclature. DESCRIPTION OF RECORD: During the stimulated state the patient remained very drowsy and the background consisted of mixed very low and low amplitude 4-7 Hz and 8-10 Hz activities. Diffuse very low amplitude beta frequency activity was also seen. There was no clear sustained posterior dominant rhythm seen. Stage I sleep consisted of vertex sharp transients and POSTS. Stage 2 sleep was reached characterized by symmetric and synchronous frontocentral sleep spindles and k-complexes. HV: Hyperventilation was not performed. PHOTIC STIMULATION: Flash stimulation was done from 1-30 Hz during stage II sleep; photic driving was not seen; photoparoxysmal responses were absent. IMPRESSION: Normal EEG recorded in drowsiness and sleep CLINICAL CORRELATION: This study is normal for the drowsy and asleep states. Full wakefulness was not recorded and cannot be commented upon. An EEG without epileptiform discharges does not exclude the possibility of epilepsy. If the clinical suspicion of epilepsy remains, consider additional EEG recordings. There were no prior EEG reports available for comparison. Cecelia Junior, PGY4 [facility] Department of Neurology Gilda Chandra MD Epilepsy Fellow [facility] Neurophysiology Service Daysi Marques MD Epilepsy Attending Performing Organization Address [facility] Phone Number [employer] RIS ECG 12 lead (08/18/2018 9:38 PM CDT) Narrative Performed At Ventricular Rate 90 BPM GE MUSE Atrial Rate 90 BPM P-R Interval 140 ms QRS Duration 82 ms Q-T Interval 400 ms QTC Calculation(Bazett) 489 ms P Haines 55 degrees R Haines 9 degrees T Haines 30 degrees Normal sinus rhythm Normal ECG No previous ECGs available Confirmed by Christopher BECKER MICHAEL ([id number]) on 08/19/2018 7:38:59 AM Procedure Note Interface, External Ris In - 08/19/2018 7:39 AM CDT Ventricular Rate 90 BPM Atrial Rate 90 BPM P-R Interval 140 ms QRS Duration 82 ms Q-T Interval 400 ms QTC Calculation(Bazett) 489 ms P Haines 55 degrees R Haines 9 degrees T Haines 30 degrees Normal sinus rhythm Normal ECG No previous ECGs available Confirmed by Christopher BECKER MICHAEL ([id number]) on 08/19/2018 7:38:59 AM Performing Organization Address [facility] Phone Number Asset Mapping MUSE CBC with platelet count + automated diff (08/18/2018 3:57 AM CDT)Only the most recent of2 resultswithin the time period is included. WBC 9.6 3.5 - 10.5 K/L [facility] RBC 4.23 3.93 - 5.22 M/L [facility] Hemoglobin 12.1 11.2 - 15.7 GM/DL [facility] Hematocrit 37.3 34.1 - 44.9 % [facility] MCV 88.2 79.4 - 94.8 fL [facility] MCH 28.6 25.6 - 32.2 pg [facility] MCHC 32.4 32.2 - 35.5 GM/DL [facility] RDW 13.0 11.7 - 14.4 % [facility] Platelets 340 150 - 450 K/CU MM [facility] MPV 10.2 9.4 - 12.3 fL [facility] nRBC 0 0 - 0 /100 WBC [facility] % Neutros 59 % [facility] % Lymphs 30 % [facility] % Monos 8 % [facility] % Eos 3 % [facility] % Baso 0 % [facility] # Neutros 5.71 1.56 - 6.13 K/L [facility] # Lymphs 2.85 1.18 - 3.74 K/L [facility] # Monos 0.72 (H) 0.24 - 0.36 K/L [facility] # Eos 0.28 0.04 - 0.36 K/L [facility] # Baso 0.04 0.01 - 0.08 K/L [facility] Immature Granulocytes-Relative 0 0 - 1 % [facility] Specimen Blood Performing Organization Address City/State/Zipcode Phone Number [facility] [address] [place] [address] [phone] CENTER Hemoglobin A1c (08/18/2018 3:57 AM CDT)Only the most recent of2 resultswithin the time period is included. Hemoglobin A1C 8.5 (H) 4.3 - 6.1 % [facility] Specimen Blood Performing Organization Address City/State/Zipcode Phone Number [facility] [address] [place], [place] [phone] [place] Vitamin B12 (08/18/2018 3:57 AM CDT) Vitamin B12 <146 (L) 213 - 816 pg/mL [facility] Specimen Blood Performing Organization Address [facility] Phone Number [place] [phone] [place] [address] [place] Basic metabolic panel (08/18/2018 3:57 AM CDT)Only the most recent of2 resultswithin the time period is included. Sodium 140 136 - 145 meq/L [facility] Potassium 4.0 3.5 - 5.1 meq/L [facility] Chloride 105 98 - 107 meq/L [facility] CO2 26 22 - 29 meq/L [facility] BUN 13 7 - 21 mg/dL [facility] Creatinine 0.72 0.57 - 1.25 mg/dL [facility] Glucose 224 (H) 70 - 105 mg/dL [facility] Calcium 9.5 8.4 - 10.2 mg/dL [facility] EGFR 82Comment: INSUFFICIENT mL/min/1.73 sq m [facility] CLINICAL DATA TO CALCULATE MEDICAL CENTER ESTIMATED GFR. Specimen Blood Performing Organization Address City/[facility] Phone Number [place] [phone] [place], [place] [phone] [place] XR chest 2 views (08/17/2018 9:07 PM CDT) Narrative Performed At FINAL REPORT GE [facility] Exam: Chest x-ray, PA and lateral views Clinical History: Altered mental status and leukocytosis. Comparison: No prior study for comparison. Technique: Frontal and lateral views of the chest were obtained. Findings: The heart is normal in size. The aorta is mildly uncoiled. There is mild biapical pleural thickening. There is no focal pulmonary consolidation, pleural effusion or pneumothorax. There is no pulmonary edema. The bony thorax is demineralized. Impression: No focal pulmonary consolidation. Signed: Florin Moura MD Report Verified Date/Time:08/17/2018 22:51:33 Reading Location: [facility] C013Y CT Body Reading Room Procedure Note Interface, External Ris In - 08/17/2018 10:53 PM CDT FINAL REPORT Exam: Chest x-ray, PA and lateral views Clinical History: Altered mental status and leukocytosis. Comparison: No prior study for comparison. Technique: Frontal and lateral views of the chest were obtained. Findings: The heart is normal in size. The aorta is mildly uncoiled. There is mild biapical pleural thickening. There is no focal pulmonary consolidation, pleural effusion or pneumothorax. There is no pulmonary edema. The bony thorax is demineralized. Impression: No focal pulmonary consolidation. Signed: Florin Moura MD Report Verified Date/Time: 08/17/2018 22:51:33 Reading Location: [facility] C013Y CT Body Reading Room Performing Organization Address City/State/Zipcode Phone Number RIS Urinalysis Microscopic Only (08/17/2018 12:02 PM CDT) RBC, UA 3 /HPF [facility] WBC, UA 50 /HPF [facility] Mucus Rare [facility] Squam Epithel, UA 1 /HPF [facility] Specimen Urine Performing Organization Address City/[facility]/Zipcode Phone Number [address] [address] CENTER Urinalysis with Microscopic If Indicated (08/17/2018 12:02 PM CDT) Color, UA Yellow [facility] Clarity, UA Clear [facility] Specific [place], UA 1.029 1.001 - 1.035 [facility] pH, UA 5.0 5.0 - 8.0 [facility] Protein, UA Negative Negative [facility] Glucose, UA >1000 mg/dL (A) Negative [facility] Ketones, UA 40 mg/dL (A) Negative [facility] Bilirubin, UA Negative Negative [facility] Blood, UA Negative Negative [facility] Nitrite, UA Negative Negative [facility] Leukocytes, UA Moderate (A) Negative [facility] Urobilinogen, UA 0.2 0.2 - 1.0 mg/dL [facility] Specimen Source [facility] Specimen Urine Performing Organization Address [facility] Phone Number [address] [address] [phone] [place] TSH/Free T4 If Indicated (08/17/2018 9:43 AM CDT) TSH 0.15 (L) 0.35 - 4.94 uIU/mL [facility] Specimen Blood Performing Organization Address [facility] Phone Number [address] [address] [place] HIV-1 Antigen with HIV-1/2 Antibody (08/17/2018 9:43 AM CDT) HIV-1 Antigen with HIV 1&2 Nonreactive [facility] CENTER Specimen Blood Performing Organization Address [facility] Phone Number [address] [address] [phone] [place] Hepatitis B Panel (08/17/2018 9:43 AM CDT) Hep B Core Total Ab (A) Nonreactive [facility] Hep B S Ab <8.0 <8.0 mIU/mL [facility] hepatitis B Surface Ag Nonreactive [facility] Specimen Blood Performing Organization Address [facility] Phone Number [address] [address] [place] Hepatitis A Panel (08/17/2018 9:43 AM CDT) Hep A IgM Nonreactive [facility] Hep A IgG Nonreactive Nonreactive [facility] Specimen Blood Performing Organization Address [facility] Phone Number [address] [address] [phone] [place] Hepatitis C antibody (08/17/2018 9:43 AM CDT) Hepatitis C Ab Nonreactive [facility] Specimen Blood Performing Organization Address [facility] Phone Number [address] [address] [place] Lactic acid, venous, whole blood (08/17/2018 9:43 AM CDT) Lactate, Venous 1.2 0.5 - 2.2 mmol/L [facility] Specimen Blood Narrative Performed At [facility] Effective 04/04/2016: Units/Reference Range Change New: 0.5-2.2 mmol/LPrevious: 5-20 mg/dL Performing Organization Address [facility] Phone Number [address] [address] [place] RPR (08/17/2018 9:43 AM CDT) RPR Nonreactive Nonreactive [facility] Specimen Blood Performing Organization Address [facility] Phone Number [address] [address] [place] T4, free (08/17/2018 9:43 AM CDT) Free T4 1.21 0.70 - 1.48 ng/dL [facility] Specimen Blood Performing Organization Address City/[facility] Phone Number [address] [address] [place] Ammonia (08/17/2018 9:43 AM CDT) Ammonia 24 18 - 72 mol/L [facility] Specimen Blood Performing Organization Address City/[facility] Phone Number [address] [address] [place] Hepatic function panel (08/17/2018 9:43 AM CDT) Protein, Total 6.9 6.0 - 8.3 gm/dL [facility] Albumin 4.0 3.5 - 5.0 g/dL [facility] Total Bilirubin 0.5 0.2 - 1.2 mg/dL [facility] Bilirubin, Direct 0.2 0.1 - 0.5 mg/dL [facility] Alkaline Phosphatase 76 40 - 150 U/L [facility] AST 9 5 - 34 U/L [facility] ALT 15 6 - 55 U/L [facility] Specimen Blood Performing Organization Address [facility] Phone Number [address] [address] [place] Urine culture (08/17/2018 9:32 AM CDT) Result 10-19,000 col/mL skin sowmya [facility] Specimen Urine - Urine, Clean Catch Performing Organization Address [facility] Phone Number [address] [address] [phone] [place] Drug screen, urine, comprehensive (08/17/2018 4:39 AM CDT) Specimen Urine Narrative Performed At Blood culture (08/17/2018 4:37 AM CDT) Result No growth in 5 days [facility] Specimen Blood - Arm, Right Performing Organization Address [facility]/Zipcode Phone Number [address] [address] [phone] CENTER Phosphorus (08/17/2018 4:36 AM CDT) Phosphorus 3.0Comment: Specimen slightly 2.3 - 4.7 mg/dL [facility] Specimen Blood - Arm, Right Performing Organization Address [facility] Phone Number [address] [address] [phone] CENTER Magnesium (08/17/2018 4:36 AM CDT) Magnesium 2.0Comment: Specimen slightly 1.6 - 2.6 mg/dL [facility] Specimen Blood - Arm, Right Performing Organization Address [facility] Phone Number [address] [address] [phone] CENTER Lipid panel (08/17/2018 4:36 AM CDT) Triglycerides 112Comment: Specimen slightly mg/dL [facility] Cholesterol 210Comment: Specimen slightly mg/dL [facility] HDL 44 mg/dL [facility] LDL Calculated 144 mg/dL [facility] Specimen Blood - Arm, Right Narrative Performed At [facility] Triglyceride Reference Range: Low Risk <150 [id number] High Risk 200-499 Very High Risk>=500 Cholesterol Reference Range: Low Risk <200 [id number] High Risk>240 HDL Cholesterol Reference Range: Low Risk >=60 High Risk <40 LDL Cholesterol Reference Range: Optimal<100 Near [id number] Very High >=190 Performing Organization Address [facility] Phone Number [address] [address] [phone] CENTER after 10/02/2017 Insurance Payer Benefit Plan / Group Subscriber ID Type Phone Address MEDICARE MEDICARE A B xxxxxxxxxxx Medicare (Home) [place] [address] Advance Directives For more information, please contact:[address] [phone] Code Status Date Activated Date Inactivated Comments Full Code 08/17/2018 12:19 AM 08/21/2018 5:41 AM This code status was determined by: Patient Full Code 08/17/2018 12:19 AM 08/17/2018 12:19 AM This code status was determined by: Patient
--- OUTSIDE RECORDS SUMMARY | 2018-10-03 20:43 | XMS REPORT ---
:1955 [facility] Address [address] [place] [address] [address]. [address] [place] [address] Care Team Providers Name Role Phone PATRICK COLINDRES Unavailable Unavailable Problems This patient has no known problems. Allergies, Adverse Reactions, Alerts This patient has no known allergies or adverse reactions. Medications This patient has no known medications. Results Test Description Test Time Test Comments Text Results Atomic Results Result Comments MISCELLANEOUS LAB ORDER 2018-08-27 07:33:00 Test Item Value Reference Range Comments SCAN RESULT (test kdpw=[id number]) MISCELLANEOUS LAB [id number] 10:23:00 Test Item Value Reference Range Comments SCAN RESULT (test lhpu=[id number]) IGG INDEX (CSF + BLOOD)2018-08-25 10:20:00 Test Item Value Reference Range Comments SCAN RESULT (test nivb=[id number]) CSF CULTURE + GRAM [id number] 09:57:00 Test Item Value Reference Range Comments CULTURE (BEAKER) (test hrbw=1854) No growth GRAM STAIN RESULT (BEAKER) (test No White blood cells seen snom=6481) GRAM STAIN RESULT (BEAKER) (test No organisms seen oava=22024) BLOOD [id number] 06:00:00 Test Item Value Reference Range Comments CULTURE (BEAKER) (test psgb=0702) No growth in 5 days HSV 1/2 PCR, [id number] 13:25:00 Test Item Value Reference Range Comments HSV BY PCR (BEAKER) (test sktl=206) NEGATIVE NEGATIVE Herpes Simplex Virus (HSV) not detected.These assays were performed by real- time PCR utilizing fluorogenic hydrolysis probe technology for the detection of Herpes Simplex Virus-1 and/or Herpes Simplex Virus-2 in approved specimens. A 154 base pair region of the HSV-1 and HSV-2 UL5 gene is amplified, and typing is achieved by using type specific probes. An internal control is used to confirm PCR amplification. Genetic variation and other factors can affect the accuracy of nucleic acid testing; therefore, the results should be interpreted in light of clinical data.This test was developed and its performance characteristics determined by the [facility] Pathology Department, Section of Molecular Pathology. It has not been cleared or approved by the U.S. Food and Drug Administration (FDA), as FDA approval is not required for clinical use of the test. Validation was done as required by the Clinical Laboratory Amendments of 1988.[id number] 12:12:00Medical Cytology Report Case: [id number] Authorizing Provider: Liset Boss MD Collected: 08/20/2018 1136 Ordering Location: [address] Received: 08/20/2018 7560 Service Pathologist: Claire Puckett Specimen: CSF CEREBROSPINAL FLUID (CYTOSPINS): - NEGATIVE FOR MALIGNANCY Signing Pathologist Direct Phone Line: [phone] signed by Claire Puckett on 08/21/2018 at 12:12 [id number] mental status, history of lupusCEREBROSPINAL FLUID (CYTOSPINS)1 ml colorless; 2 cytospinsCollected: [id number]: [id number] [facility], Department of Pathology, [address] [place] [address], [facility], [address] [place] [address], ZYOMAJMYEJSH ANTIGEN, [id number] 01:32:00 Test Item Value Reference Range Comments CRYPTOCOCCAL ANTIGEN, CSF (BEAKER) (test Negative Negative, Interference cgqs=217) VDRL, [id number] 01:24:00 Test Item Value Reference Range Comments SYPHILIS VDRL QUANTITATION CSF (BEAKER) (test Nonreactive Nonreactive jgpf=231) POCT-GLUCOSE [id number] 21:11:00 Test Item Value Reference Range Comments POC-GLUCOSE METER (BEAKER) 450 mg/dL 70-110 TESTED AT [address] (test unru=2509) [place] [address] [place], LUMBAR PUNCTURE, [id number] 15:12:00Reason for exam:->delirium, concern for encephalitis -- needs to be done under anesthesia due to agitationCall daughter for consent -- [phone] REPORT REFERRING PHYSICIAN: Liset Boss M.D. PROCEDURE: Fluoroscopy guided diagnostic lumbar puncture RADIOLOGIST: Ya Archer M.D. INDICATION: Delirium, encephalitis DESCRIPTION OF PROCEDURE:The patient was prepped and draped on the [...] guided diagnostic lumbar puncture. Signed: [facility] Verified Date/Time: 08/20/2018 15:12:33 Reading Location: [facility] Neuro Reading Room CSF CELL COUNT W/ [id number] 15:06:00 Test Item Value Reference Range Comments APPEARANCE CSF (BEAKER) (test acwy=819) Clear Clear COLOR CSF (BEAKER) (test gitp=343) Colorless Colorless RBC CSF (BEAKER) (test wqdc=963) 1 /cu mm 0-5 WBC CSF (BEAKER) (test sqbx=3196) 6 /cu mm <=5 RBCS FRESH (BEAKER) (test uewv=4890) 100% Fresh NUMBER OF CELLS DIFF'D (BEAKER) (test 10 qnln=5490) NEUTROPHIL, CSF (BEAKER) (test pxym=572) 0 % 0-5 LYMPHS CSF (BEAKER) (test line=416) 70 % 40-80 MONO/MACROPHAGE CSF (BEAKER) (test ybnb=661) 30 % 15-45 EOSINOPHILS CSF (BEAKER) (test qxwn=246) 0 % <=0 BASO CSF (BEAKER) (test bkix=001) 0 % <=0 TUBE NUMBER CSF (BEAKER) (test kidp=8028) EDTA (Tube #4) AUGIE INK [id number] 13:53:00 Test Item Value Reference Range Comments AUGIE INK (BEAKER) No encapsulated yeast seen No encapsulated yeast seen (test rlwu=0771) GLUCOSE, [id number] 13:45:00 Test Item Value Reference Range Comments GLUCOSE CSF (BEAKER) (test wvmc=723) 135 mg/dL 40-70 PROTEIN, [id number] 13:45:00 Test Item Value Reference Range Comments PROTEIN CSF (BEAKER) (test ekfo=097) 50 mg/dL 15-45 MR, BRAIN, [id number] 13:28:00Under sedation with anesthesia (get consent from patient's daughter ([phone])FINAL REPORT MRI Brain with and without contrast 08/20/2018 1:26 PM CLINICAL HISTORY: Confusion/ delirium, altered LOC, unexplained TECHNIQUE: Multiplanar, multisequence MR imagingof the brain was performed, utilizing the following [...] There is no hematoma, mass, hydrocephalus, or extra- axial collection. There is a tiny chronic infarctin the cerebellar vermis. There is rare chronic microvascular ischemia in the supratentorial white matter. Normal appearing flow-voids are present within the major intracranial vascular structures. The sellar and pineal regions are normal. The craniovertebral junction is intact. The orbits, face, andskull base are without worrisome finding. IMPRESSION: 1. 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 2. Subacute and chronic ischemic changes as discussed. Signed: Mehdi Plascencia Verified Date/Time: 08/20/2018 13:28:43 Reading Location: [facility] Radiology Reading Room [id number] 09:26:00 Test Item Value Reference Range Comments PROTIME (BEAKER) (test swih=721) 13.5 seconds 11.7-14.7 INR (BEAKER) (test qovh=400) 1.0 <=5.9 PARTIAL THROMBOPLASTIN TIME (BEAKER) (test 22.8 seconds 22.5-36.0 kxuq=511) RECOMMENDED COUMADIN/WARFARIN INR THERAPY RANGESSTANDARD DOSE: 2.0 - 3.0 Includes: PROPHYLAXIS forvenous thrombosis, systemic embolization; TREATMENT for venous thrombosis and/or pulmonary embolus.HIGH RISK: Target INR is 2.5-3.5 for patients with mechanical heart valves.POCT-GLUCOSE [id number] 08:02:00 Test Item Value Reference Range Comments POC-GLUCOSE METER (BEAKER) 276 mg/dL 70-110 TESTED AT [address] (test vnek=9759) [place] [address] POCT-GLUCOSE [id number] 03:49:00 Test Item Value Reference Range Comments POC-GLUCOSE METER (BEAKER) 284 mg/dL 70-110 TESTED AT [address] (test ohel=6649) [place] [id number] POCT-GLUCOSE [id number] 20:53:00 Test Item Value Reference Range Comments POC-GLUCOSE METER (BEAKER) 250 mg/dL 70-110 TESTED AT [address] (test lscn=7697) [place] [id number] POCT-GLUCOSE [id number] 16:51:00 Test Item Value Reference Range Comments POC-GLUCOSE METER (BEAKER) 316 mg/dL 70-110 TESTED AT [address] (test pdpj=7161) [place] [id number] EEG AWAKE AND [id number] 16:33:00Reason for exam:->aphasia with waxing and waning symptoms. new bilateral lesionsNeurophysiology EEG Report Patient Name: John Jose DATE OF EE08/19/18 DATE OF REPORT: 08/19/18 ACC: [id number] EE Start time: 1305 PM Stop time: 1326 PM ICD-10: R41.82 Altered Mental Status CPT Code: 61348 (Awake and Asleep EEG) HISTORY: 53 year [...] Hz and 8-10 Hz activities. Diffuse very lowamplitude beta frequency activity was also seen. There was no clear sustained posterior dominant rhythm seen. Stage I sleep consisted of vertex sharp transients and POSTS. Stage 2 sleep was reached characterized by symmetric and synchronous frontocentral sleep spindles and k-complexes. HV: Hyperventilation was not performed. PHOTIC STIMULATION: Flash stimulation was done from 1-30 Hz during stage IIsleep; photic driving was not seen; photoparoxysmal responses were absent. IMPRESSION: Normal EEG recorded in drowsiness and sleep CLINICAL CORRELATION: This study is normal for the drowsy and asleepstates. Full wakefulness was not recorded and cannot be commented upon. An EEG without epileptiform discharges does not exclude the possibility of epilepsy. If the clinical suspicion of epilepsy remains, consider additional EEG recordings. There were no prior EEG reports available for comparison. Cecelia Junior, PGY4 [facility] Department of Neurology Gilda Chandra MDEpilepsy FellowMIN[facility] Neurophysiology Service Daysi Marques MDEpilepsy Attending 04: 33 PMPOCT-GLUCOSE [id number] 12:17:00 Test Item Value Reference Range Comments POC-GLUCOSE METER (BEAKER) 240 mg/dL 70-110 TESTED AT [address] (test gjds=9174) [facility] [address] URINE [id number] 10:49:00 Test Item Value Reference Range Comments CULTURE (BEAKER) (test 10-19,000 col/mL skin sowmya oxia=2271) POCT-GLUCOSE [id number] 08:30:00 Test Item Value Reference Range Comments POC-GLUCOSE METER (BEAKER) 187 mg/dL 70-110 TESTED AT [address] (test ikaa=2315) [facility] [address] POCT-GLUCOSE [id number] 22:25:00 Test Item Value Reference Range Comments POC-GLUCOSE METER (BEAKER) 183 mg/dL 70-110 TESTED AT [facility] [address] [facility] (test knho=7608) [facility] [address] POCT-GLUCOSE [id number] 08:38:00 Test Item Value Reference Range Comments POC-GLUCOSE METER (BEAKER) 246 mg/dL 70-110 TESTED AT [facility] [address] [facility] (test ihye=4598) [facility] [address] HEMOGLOBIN [id number] 08:29:00 Test Item Value Reference Range Comments HEMOGLOBIN A1C (BEAKER) (test vmgp=454) 8.5 % 4.3-6.1 VITAMIN [id number] 06:38:00 Test Item Value Reference Range Comments VITAMIN B12 (BEAKER) (test wyyk=208) < pg/mL 213-816 BASIC METABOLIC [id number] 05:58:00 Test Item Value Reference Range Comments SODIUM (BEAKER) (test 140 meq/L 136-145 exww=461) POTASSIUM (BEAKER) (test 4.0 meq/L 3.5-5.1 vuct=927) CHLORIDE (BEAKER) (test 105 meq/L 98-107 klcm=418) CO2 (BEAKER) (test 26 meq/L 22-29 eldw=684) BLOOD UREA NITROGEN 13 mg/dL 7-21 (BEAKER) (test gcpu=468) CREATININE (BEAKER) 0.72 mg/dL 0.57-1.25 (test lsgq=042) GLUCOSE RANDOM (BEAKER) 224 mg/dL 70-105 (test hbwm=163) CALCIUM (BEAKER) (test 9.5 mg/dL 8.4-10.2 wgyr=216) EGFR (BEAKER) (test 82 mL/min/1.73 sq m INSUFFICIENT CLINICAL DATA xbmb=2990) TO CALCULATE ESTIMATED GFR. CBC W/PLT COUNT & AUTO [id number] 05:09:00 Test Item Value Reference Range Comments WHITE BLOOD CELL COUNT (BEAKER) (test fhao=510) 9.6 K/ L 3.5-10.5 RED BLOOD CELL COUNT (BEAKER) (test bjhz=082) 4.23 M/ L 3.93-5.22 HEMOGLOBIN (BEAKER) (test uwqa=251) 12.1 GM/DL 11.2-15.7 HEMATOCRIT (BEAKER) (test yldq=731) 37.3 % 34.1-44.9 MEAN CORPUSCULAR VOLUME (BEAKER) (test qake=773) 88.2 fL 79.4-94.8 MEAN CORPUSCULAR HEMOGLOBIN (BEAKER) (test 28.6 pg 25.6-32.2 ujca=791) MEAN CORPUSCULAR HEMOGLOBIN CONC (BEAKER) (test 32.4 GM/DL 32.2-35.5 ghow=059) RED CELL DISTRIBUTION WIDTH (BEAKER) (test 13.0 % 11.7-14.4 myoy=770) PLATELET COUNT (BEAKER) (test fzaj=854) 340 K/CU MM 150-450 MEAN PLATELET VOLUME (BEAKER) (test vsdk=420) 10.2 fL 9.4-12.3 NUCLEATED RED BLOOD CELLS (BEAKER) (test 0 /100 WBC 0-0 kvxf=682) NEUTROPHILS RELATIVE PERCENT (BEAKER) (test 59 % aloj=964) LYMPHOCYTES RELATIVE PERCENT (BEAKER) (test 30 % asjf=369) MONOCYTES RELATIVE PERCENT (BEAKER) (test 8 % dquc=509) EOSINOPHILS RELATIVE PERCENT (BEAKER) (test 3 % wuut=914) BASOPHILS RELATIVE PERCENT (BEAKER) (test 0 % rpwp=793) NEUTROPHILS ABSOLUTE COUNT (BEAKER) (test 5.71 K/ L 1.56-6.13 ckwc=070) LYMPHOCYTES ABSOLUTE COUNT (BEAKER) (test 2.85 K/ L 1.18-3.74 dflq=257) MONOCYTES ABSOLUTE COUNT (BEAKER) (test 0.72 K/ L 0.24-0.36 qpva=003) EOSINOPHILS ABSOLUTE COUNT (BEAKER) (test 0.28 K/ L 0.04-0.36 ftfr=443) BASOPHILS ABSOLUTE COUNT (BEAKER) (test 0.04 K/ L 0.01-0.08 ktrr=842) IMMATURE GRANULOCYTES-RELATIVE PERCENT (BEAKER) 0 % 0-1 (test zhpr=4981) [id number] 03:03:00 Test Item Value Reference Range Comments RPR SCREEN (BEAKER) (test bfvq=103) Nonreactive Nonreactive RAD, CHEST, 2 [id number] 22:51:00Reason for exam:->altered mental status with leukocytosis, evaluation for infectious etiologyFINAL REPORT Exam: Chest x-ray, PA and lateral views Clinical History : Altered mental status and leukocytosis. Comparison: No [...] demineralized. Impression: No focal pulmonary consolidation. Signed: Jojo Mouraeport Verified Date/Time: 08/17/2018 22:51:33 Reading Location: [facility] C013Y CT Body Reading Room POCT-GLUCOSE [id number] 22:23:00 Test Item Value Reference Range Comments POC-GLUCOSE METER (BEAKER) 325 mg/dL 70-110 Notified ALYSHA ESCALERA/TESTED AT [facility] (test wquw=9756) [address] [facility] [address] POCT-GLUCOSE [id number] 17:17:00 Test Item Value Reference Range Comments POC-GLUCOSE METER (BEAKER) 335 mg/dL 70-110 Notified ALYSHA ESCALERA/TESTED AT [facility] (test thud=4112) [address] [facility] [address] T4, [id number] 14:09:00 Test Item Value Reference Range Comments FREE T4 (BEAKER) (test etec=513) 1.21 ng/dL 0.70-1.48 TSH/FREE T4 IF [id number] 12:56:00 Test Item Value Reference Range Comments THYROID STIMULATING HORMONE (BEAKER) (test 0.15 uIU/mL 0.35-4.94 kdxb=129) URINALYSIS WITH MICROSCOPIC IF [id number] 12:47:00 Test Item Value Reference Range Comments COLOR (BEAKER) (test ptgg=576) Yellow CLARITY (BEAKER) (test fjlv=101) Clear SPECIFIC GRAVITY UA (BEAKER) (test bhax=197) 1.029 1.001-1.035 PH UA (BEAKER) (test hcfy=640) 5.0 5.0-8.0 PROTEIN UA (BEAKER) (test jewb=283) Negative Negative GLUCOSE UA (BEAKER) (test swau=791) >1000 mg/dL Negative KETONES UA (BEAKER) (test hlus=639) 40 mg/dL Negative BILIRUBIN UA (BEAKER) (test mbrt=212) Negative Negative BLOOD UA (BEAKER) (test scra=421) Negative Negative NITRITE UA (BEAKER) (test blkq=526) Negative Negative LEUKOCYTE ESTERASE UA (BEAKER) (test gakc=637) Moderate Negative UROBILINOGEN UA (BEAKER) (test bjvl=703) 0.2 mg/dL 0.2-1.0 SOURCE(BEAKER) (test mbfz=0756) URINALYSIS [id number] 12:47:00 Test Item Value Reference Range Comments RBC UA (BEAKER) (test faru=410) 3 /HPF WBC UA (BEAKER) (test dtfb=458) 50 /HPF MUCUS (BEAKER) (test xomz=6735) Rare SQUAMOUS EPITHELIAL (BEAKER) (test cjul=679) 1 /HPF HEPATITIS B [id number] 12:23:00 Test Item Value Reference Range Comments HEPATITIS B CORE TOTAL ANTIBODY (BEAKER) (test Reactive Nonreactive dzmt=926) HEPATITIS B SURFACE ANTIBODY (BEAKER) (test < mIU/mL <8.0 faio=312) HEPATITIS B SURFACE ANTIGEN (2) (BEAKER) (test Nonreactive Nonreactive kzdy=7593) POCT-GLUCOSE [id number] 12:10:00 Test Item Value Reference Range Comments POC-GLUCOSE METER (BEAKER) 338 mg/dL 70-110 TESTED AT [address] (test xori=9283) [facility] [address] HEPATITIS A [id number] 10:50:00 Test Item Value Reference Range Comments HEPATITIS A IGM ANTIBODY (BEAKER) (test Nonreactive Nonreactive vkzl=620) HEPATITIS A IGG ANTIBODY (BEAKER) (test Nonreactive Nonreactive bdrv=5893) HIV-1 ANTIGEN WITH HIV-1/2 [id number] 10:50:00 Test Item Value Reference Range Comments HIV-1 ANTIGEN WITH HIV 1\T\2 ANTIBODY (2) Nonreactive Nonreactive (BEAKER) (test dvpx=9107) HEPATITIS C [id number] 10:49:00 Test Item Value Reference Range Comments HEPATITIS C ANTIBODY (BEAKER) (test gadz=836) Nonreactive Nonreactive HEPATIC FUNCTION [id number] 10:26:00 Test Item Value Reference Range Comments TOTAL PROTEIN (BEAKER) (test rqmn=195) 6.9 gm/dL 6.0-8.3 ALBUMIN (BEAKER) (test cfzm=9897) 4.0 g/dL 3.5-5.0 BILIRUBIN TOTAL (BEAKER) (test xcyk=312) 0.5 mg/dL 0.2-1.2 BILIRUBIN DIRECT (BEAKER) (test qvxk=020) 0.2 mg/dL 0.1-0.5 ALKALINE PHOSPHATASE (BEAKER) (test uqjd=108) 76 U/L 40-150 AST (SGOT) (BEAKER) (test mdqx=964) 9 U/L 5-34 ALT (SGPT) (BEAKER) (test infp=130) 15 U/L 6-55 LACTIC ACID, VENOUS, WHOLE [id number] 10:20:00 Test Item Value Reference Range Comments LACTATE BLOOD VENOUS (2) (BEAKER) (test 1.2 mmol/L 0.5-2.2 dhzn=3363) Effective 04/04/2016: Units/Reference Range ChangeNew: 0.5-2.2 mmol/L Previous: 5 -20 mg/[id number] 10:17:00 Test Item Value Reference Range Comments AMMONIA (BEAKER) (test fdzt=865) 24 mol/L 18-72 HEMOGLOBIN [id number] 10:16:00 Test Item Value Reference Range Comments HEMOGLOBIN A1C (BEAKER) (test fzha=496) 8.6 % 4.3-6.1 FastingPOCT-GLUCOSE [id number] 09:22:00 Test Item Value Reference Range Comments POC-GLUCOSE METER (BEAKER) 278 mg/dL 70-110 TESTED AT [address] (test qwsh=6647) [facility] [address] POCT-GLUCOSE [id number] 06:19:00 Test Item Value Reference Range Comments POC-GLUCOSE METER (BEAKER) 304 mg/dL 70-110 TESTED AT [address] (test edmp=1433) [facility] [address] [id number] 05:16:00 Test Item Value Reference Range Comments MAGNESIUM (BEAKER) (test 2.0 mg/dL 1.6-2.6 Specimen slightly hemolyzed aymd=755) [id number] 05:16:00 Test Item Value Reference Range Comments PHOSPHORUS (BEAKER) (test 3.0 mg/dL 2.3-4.7 Specimen slightly hemolyzed cojt=160) BASIC METABOLIC [id number] 05:16:00 Test Item Value Reference Range Comments SODIUM (BEAKER) (test 138 meq/L 136-145 bfoq=764) POTASSIUM (BEAKER) (test 4.2 meq/L 3.5-5.1 Specimen slightly ikly=430) hemolyzed CHLORIDE (BEAKER) (test 104 meq/L 98-107 uths=500) CO2 (BEAKER) (test 23 meq/L 22-29 exlm=087) BLOOD UREA NITROGEN 11 mg/dL 7-21 (BEAKER) (test ajkl=819) CREATININE (BEAKER) 0.78 mg/dL 0.57-1.25 Specimen slightly (test sdaa=035) hemolyzed GLUCOSE RANDOM (BEAKER) 303 mg/dL 70-105 (test lvqv=181) CALCIUM (BEAKER) (test 9.4 mg/dL 8.4-10.2 qmtd=451) EGFR (BEAKER) (test 75 mL/min/1.73 sq m INSUFFICIENT CLINICAL DATA xijc=6408) TO CALCULATE ESTIMATED GFR. LIPID [id number] 05:16:00 Test Item Value Reference Range Comments TRIGLYCERIDES (BEAKER) (test 112 mg/dL Specimen slightly hemolyzed piln=982) CHOLESTEROL (BEAKER) (test 210 mg/dL Specimen slightly hemolyzed iwnc=130) HDL CHOLESTEROL (BEAKER) (test 44 mg/dL pcuk=025) LDL CHOLESTEROL CALCULATED 144 mg/dL (BEAKER) (test qhyr=527) Triglyceride Reference Range: Low Risk <150 Borderline 150- 199 High Risk 200-499 Very High Risk >=500Cholesterol Reference Range: Low Risk <200 Borderline 200-239 High Risk > 240HDL Cholesterol Reference Range: Low Risk >=60 High Risk <40LDL Cholesterol Reference Range: Optimal <100 Near Optimal 100-129 Borderline 130-159 High 160-189 Very High >=190CBC W/PLT COUNT & AUTO [id number] 04:56:00 Test Item Value Reference Range Comments WHITE BLOOD CELL COUNT (BEAKER) (test yjee=826) 11.2 K/ L 3.5-10.5 RED BLOOD CELL COUNT (BEAKER) (test ldjz=856) 4.56 M/ L 3.93-5.22 HEMOGLOBIN (BEAKER) (test ixcr=586) 13.0 GM/DL 11.2-15.7 HEMATOCRIT (BEAKER) (test zruy=369) 39.8 % 34.1-44.9 MEAN CORPUSCULAR VOLUME (BEAKER) (test cuoj=418) 87.3 fL 79.4-94.8 MEAN CORPUSCULAR HEMOGLOBIN (BEAKER) (test 28.5 pg 25.6-32.2 psfp=052) MEAN CORPUSCULAR HEMOGLOBIN CONC (BEAKER) (test 32.7 GM/DL 32.2-35.5 bjtx=746) RED CELL DISTRIBUTION WIDTH (BEAKER) (test 12.9 % 11.7-14.4 keyv=765) PLATELET COUNT (BEAKER) (test sgjj=233) 349 K/CU MM 150-450 MEAN PLATELET VOLUME (BEAKER) (test agfr=572) 9.7 fL 9.4-12.3 NUCLEATED RED BLOOD CELLS (BEAKER) (test 0 /100 WBC 0-0 sbom=886) NEUTROPHILS RELATIVE PERCENT (BEAKER) (test 71 % gmsq=068) LYMPHOCYTES RELATIVE PERCENT (BEAKER) (test 21 % huiv=619) MONOCYTES RELATIVE PERCENT (BEAKER) (test 7 % mncu=143) EOSINOPHILS RELATIVE PERCENT (BEAKER) (test 1 % xhjd=291) BASOPHILS RELATIVE PERCENT (BEAKER) (test 0 % pduh=367) NEUTROPHILS ABSOLUTE COUNT (BEAKER) (test 7.96 K/ L 1.56-6.13 bofq=957) LYMPHOCYTES ABSOLUTE COUNT (BEAKER) (test 2.33 K/ L 1.18-3.74 wukh=439) MONOCYTES ABSOLUTE COUNT (BEAKER) (test 0.73 K/ L 0.24-0.36 umtd=714) EOSINOPHILS ABSOLUTE COUNT (BEAKER) (test 0.10 K/ L 0.04-0.36 rrmz=318) BASOPHILS ABSOLUTE COUNT (BEAKER) (test 0.03 K/ L 0.01-0.08 irmz=426) IMMATURE GRANULOCYTES-RELATIVE PERCENT ([employer]AKER) 0 % 0-1 (test iqjf=7601) POCT-GLUCOSE [id number] 23:38:00 Test Item Value Reference Range Comments POC-GLUCOSE METER ([employer]) 280 mg/dL 70-110 TESTED AT [facility] [address] [facility] (test armm=0416) [facility] [address]
[2018-10-03] MEDS ORDERED: HYDROCODONE/APAP 10/325 TAB ONE (22:07)
--- NOTE | 2018-10-03 22:16 | ER ---
Nurse's Notes [facility] Name: Eve Jose Age: 63 yrs Sex: Female : 1955 Arrival Date: 10/03/2018 Time: 20:40 Bed 28 Private MD: Diagnosis: Contusion of left knee Presentation: 10/03 20:53 Presenting complaint: Patient states: fell on her knees while getting of the car in her mg2 garage \T\ 1930H tonight. denies loc, n/v, denies head injury. Transition of care: patient was not received from another setting of care. Onset of symptoms was October 03, 2018. Risk Assessment: Do you want to hurt yourself or someone else? Patient reports no desire to harm self or others. Initial Sepsis Screen: Does the patient meet any 2 criteria? No. Patient's initial sepsis screen is negative. Does the patient have a suspected source of infection? No. Patient's initial sepsis screen is negative. Care prior to arrival: None. 20:53 Method Of Arrival: Wheelchair mg2 20:53 Acuity: IVETT 4 mg2 Historical: - Allergies: 20:58 No Known Allergies; mg2 - Home Meds: 20:58 folic acid 1 mg Oral tab 1 tab once daily [Active]; Lantus 10 units in AM Sub-Q soln mg2 [Active]; Lantus 30 units at night Sub-Q soln [Active]; levothyroxine oral [Active]; Methotrexate Sodium three Oral 3 tabs once wkly [Active]; Novolog 100 unit/mL Sub-Q soln 14 unit after meals [Active]; - PMHx: 20:58 Rheumatoid Arthritis; Lupus; Hypothyroidism; stroke - september 2018; mg2 - PSHx: 20:58 Hysterectomy; vocak cords tumor removal; mg2 - Immunization history:: Flu vaccine is not up to date. - Social history:: Smoking status: Patient/guardian denies using tobacco, Patient/guardian denies using alcohol, street drugs, IV drugs. - Ebola Screening: : No symptoms or risks identified at this time. Screenin:59 Abuse screen: Denies threats or abuse. Denies injuries from another. Nutritional mg2 screening: No deficits noted. Tuberculosis screening: No symptoms or risk factors identified. Fall Risk Fall in past 12 months (25 points). Gait- Weak (10 pts.). Assessment: 20:59 General: Appears in no apparent distress. uncomfortable, Behavior is calm, cooperative. mg2 Pain: Complains of pain in right wrist and left knee Pain does not radiate. Pain currently is 8 out of 10 on a pain scale. Quality of pain is described as aching, Pain began 1 hour ago. Neuro: Level of Consciousness is awake, alert, obeys commands, Oriented to person, place, time, situation. Cardiovascular: Capillary refill < 3 seconds Patient's skin is warm and dry. Respiratory: Airway is patent Respiratory effort is even, unlabored, Respiratory pattern is regular, symmetrical. GI: No signs and/or symptoms were reported involving the gastrointestinal system. : No signs and/or symptoms were reported regarding the genitourinary system. EENT: No deficits noted. Derm: Skin is intact, is healthy with good turgor, Skin is pink, warm \T\ dry. normal. Musculoskeletal: Circulation, motion, and sensation intact. Capillary refill < 3 seconds, Swelling present in left knee. Injury Description: swelling/pain/abrasion. Vital Signs: 20:58 BP 108 / 60; Pulse 110; Resp 18; Temp 98.7(O); Pulse Ox 98% on R/A; Weight 104.33 kg; mg2 Height 5 ft. 10 in. (177.80 cm); Pain 8/10; 22:00 BP 103 / 89; Pulse 101; Resp 18; Pulse Ox 99% on R/A; mt 20:58 Body Mass Index 33.00 (104.33 kg, 177.80 cm) mg2 ED Course: 20:40 Patient arrived in ED. al2 20:53 Jeet Douglass, RN is Primary Nurse. mg2 20:54 Triage completed. mg2 20:59 Arm band placed on. mg2 20:59 No provider procedures requiring assistance completed. mg2 21:01 Patient has correct armband on for positive identification. Pulse ox on. NIBP on. mg2 21:23 Norberto Canada PA is PHCP. jr8 21:23 Nader Pinedo MD is Attending Physician. jr8 22:15 David Alex MD is Referral Physician. jr8 22:26 Patient did not have IV access during this emergency room visit. Darryl wrap to left knee. mg2 22:44 XRAY Knee LEFT 3 view In Process Unspecified. EDMS Administered Medications: 22:06 Drug: [place] 10 mg-325 mg 1 tabs Route: PO; mg2 22:27 Follow up: Response: No adverse reaction; Marked relief of symptoms mg2 Outcome: 22:15 Discharge ordered by MD. ridley 22:27 Discharged to home via wheelchair, with family. mg2 22: Condition: stable 22:27 Discharge instructions given to patient, family, Instructed on discharge instructions, follow up and referral plans. medication usage, Demonstrated understanding of instructions, follow-up care, medications, Prescriptions given X 1. 22:28 Patient left the ED. mg2 Signatures: Dispatcher [employer] EDMS Norberto Canada PA PA jr8 Thompson, Moriah mt Love, Angelica al2 Gardose, Michele, RN RN mg2
--- NOTE | 2018-10-03 22:16 | EDPHYS ---
Physician Documentation [facility] Name: Eve Jose Age: 63 yrs Sex: Female : 1955 Arrival Date: 10/03/2018 Time: 20:40 Bed 28 Private MD: ED Physician Nader Pinedo HPI: 10/03 21:52 This 63 yrs old Female presents to ER via Wheelchair with complaints of Knee jr8 Pain, Knee Injury. 21:52 The patient presents with an abrasion, decreased range of motion, pain, tenderness. The jr8 complaints affect the left knee. Context: The problem was sustained at home, resulted from the patient falling, the patient is not able to bear weight, must have assistance. Onset: The symptoms/episode began/occurred acutely, today. Modifying factors: The symptoms are alleviated by nothing. the symptoms are aggravated by movement, weight bearing. Associated signs and symptoms: The patient has no apparent associated signs or symptoms. Severity of symptoms: At their worst the symptoms were moderate, in the emergency department the symptoms are unchanged. The patient has not experienced similar symptoms in the past. The patient has not recently seen a physician. Accidental fall to left knee tonight. Denies any other trauma . Historical: - Allergies: 20:58 No Known Allergies; mg2 - Home Meds: 20:58 folic acid 1 mg Oral tab 1 tab once daily [Active]; Lantus 10 units in AM Sub-Q soln mg2 [Active]; Lantus 30 units at night Sub-Q soln [Active]; levothyroxine oral [Active]; Methotrexate Sodium three Oral 3 tabs once wkly [Active]; Novolog 100 unit/mL Sub-Q soln 14 unit after meals [Active]; - PMHx: 20:58 Rheumatoid Arthritis; Lupus; Hypothyroidism; stroke - september 2018; mg2 - PSHx: 20:58 Hysterectomy; vocak cords tumor removal; mg2 - Immunization history:: Flu vaccine is not up to date. - Social history:: Smoking status: Patient/guardian denies using tobacco, Patient/guardian denies using alcohol, street drugs, IV drugs. - Ebola Screening: : No symptoms or risks identified at this time. ROS: 21:52 Eyes: Negative for injury, pain, redness, and discharge, ENT: Negative for injury, jr8 pain, and discharge, Neck: Negative for injury, pain, and swelling, Cardiovascular: Negative for chest pain, palpitations, and edema, Respiratory: Negative for shortness of breath, cough, wheezing, and pleuritic chest pain, Abdomen/GI: Negative for abdominal pain, nausea, vomiting, diarrhea, and constipation, Back: Negative for injury and pain, Skin: Negative for injury, rash, and discoloration, Neuro: Negative for headache, weakness, numbness, tingling, and seizure. 21:52 MS/extremity: Positive for abrasion, decreased range of motion, pain, swelling, tenderness, of the left knee. Exam: 21:52 Head/Face: Normocephalic, atraumatic. Eyes: Pupils equal round and reactive to light, jr8 extra-ocular motions intact. Lids and lashes normal. Conjunctiva and sclera are non-icteric and not injected. Cornea within normal limits. Periorbital areas with no swelling, redness, or edema. ENT: Nares patent. No nasal discharge, no septal abnormalities noted. Tympanic membranes are normal and external auditory canals are clear. Oropharynx with no redness, swelling, or masses, exudates, or evidence of obstruction, uvula midline. Mucous membranes moist. Neck: Trachea midline, no thyromegaly or masses palpated, and no cervical lymphadenopathy. Supple, full range of motion without nuchal rigidity, or vertebral point tenderness. No Meningismus. Cardiovascular: Regular rate and rhythm with a normal S1 and S2. No gallops, murmurs, or rubs. Normal PMI, no JVD. No pulse deficits. Respiratory: Lungs have equal breath sounds bilaterally, clear to auscultation and percussion. No rales, rhonchi or wheezes noted. No increased work of breathing, no retractions or nasal flaring. Abdomen/GI: Soft, non-tender, with normal bowel sounds. No distension or tympany. No guarding or rebound. No evidence of tenderness throughout. Back: No spinal tenderness. No costovertebral tenderness. Full range of motion. Skin: Warm, dry with normal turgor. Normal color with no rashes, no lesions, and no evidence of cellulitis. Neuro: Awake and alert, GCS 15, oriented to person, place, time, and situation. Cranial nerves II-XII grossly intact. Motor strength 5/5 in all extremities. Sensory grossly intact. Cerebellar exam normal. Normal gait. 21:52 Musculoskeletal/extremity: Extremities: grossly normal except: noted in the left knee: Mild effusion seen on external exam of left knee. Abrasion present without bleeding to anterior left knee. Pain over tibial tuberosity noted. Pain with ROM but with full ROM. Sensation normal. 2+ pedal pulses bilaterally. No other extremity trauma noted . Vital Signs: 20:58 BP 108 / 60; Pulse 110; Resp 18; Temp 98.7(O); Pulse Ox 98% on R/A; Weight 104.33 kg; mg2 Height 5 ft. 10 in. (177.80 cm); Pain 8/10; 22:00 BP 103 / 89; Pulse 101; Resp 18; Pulse Ox 99% on R/A; mt 20:58 Body Mass Index 33.00 (104.33 kg, 177.80 cm) mg2 MDM: 21:23 Patient medically screened. jr8 22:14 Data reviewed: vital signs, nurses notes, radiologic studies, plain films, and as a jr8 result, I will discharge patient. Data interpreted: Pulse oximetry: on room air is 99 %. Interpretation: normal. Counseling: I had a detailed discussion with the patient and/or guardian regarding: the historical points, exam findings, and any diagnostic results supporting the discharge/admit diagnosis, radiology results, the need for outpatient follow up, a orthopedic surgeon, to return to the emergency department if symptoms worsen or persist or if there are any questions or concerns that arise at home. 10/03 21:36 Order name: XRAY Knee LEFT 3 view jr8 10/03 22:27 Order name: Darryl Wrap; Complete Time: 22:27 mg2 Administered Medications: 22:06 Drug: [place] 10 mg-325 mg 1 tabs Route: PO; mg2 22:27 Follow up: Response: No adverse reaction; Marked relief of symptoms mg2 Disposition: 23:08 Co-signature as Attending Physician, Nader Pinedo MD. pkl Disposition: 10/03/18 22:15 Discharged to Home. Impression: Contusion of left knee. - Condition is Stable. - Discharge Instructions: Knee Pain. - Prescriptions for Tramadol 50 mg Oral Tablet - take 1 tablet by ORAL route every 8 hours as needed; 12 tablet. - Medication Reconciliation Form, Thank You Letter, Antibiotic Education, Prescription Opioid Use form. - Follow up: David Alex MD; When: 5 - 6 days; Reason: If symptoms return, Recheck today's complaints, Continuance of care, Re-evaluation by your physician. - Problem is new. - Symptoms have improved. Signatures: Dispatcher [employer] EDMS Nader Pinedo MD MD pkl Roszak, Josh, PA PA jr8 Jeet Douglass, RN RN mg2 Corrections: (The following items were deleted from the chart) 22:28 22:15 10/03/2018 22:15 Discharged to Home. Impression: Contusion of left knee. mg2 Condition is Stable. Forms are Medication Reconciliation Form, Thank You Letter, Antibiotic Education, Prescription Opioid Use. Follow up: Dr. David Alex; When: 5 - 6 days; Reason: If symptoms return, Recheck today's complaints, Continuance of care, Re-evaluation by your physician. Problem is new. Symptoms have improved. jr8
--- NOTE | 2018-10-03 22:29 | RAD REPORT ---
EXAM DESCRIPTION: RAD - Knee Left 3 View - 10/03/2018 10:13 pm CLINICAL HISTORY: Left knee pain status post injury FINDINGS: Fat fluid level is seen within the knee joint. No fracture or dislocation is visualized. Fat fluid level likely indicates a lipohemarthrosis which reveals an occult fracture is probable
== END 2018-10-03 22:28 | disposition home or self-care (01) ==
LOC: ER 20:39
DX: S80.02XA Contusion of left knee, initial encounter (principal); W19.XXXA Unspecified fall, initial encounter; Y93.9 Activity, unspecified; Y92.009 Unspecified place in unspecified non-institutional (private) residence as the place of occurrence of the external cause; Z86.73 Personal history of transient ischemic attack (TIA), and cerebral infarction without residual deficits; E03.9 Hypothyroidism, unspecified
CPT/HCPCS: 99284

== ENCOUNTER 2021-07-18 16:45 | Emergency (ER) | payer OTHER ==
--- OUTSIDE RECORDS SUMMARY | 2021-07-18 16:50 | XMS REPORT | Continuity of Care Document ---
:1955 Author Organization [facility] t Address [address] [place] [address] Care Team Providers Name Role Phone Reanna ESCALERA, [facility] Primary Care Physician [phone] Elias Attending Clinician Unavailable KRISTIE COLINDRES Attending Clinician Unavailable KRISTIE COLINDRES Admitting Clinician Unavailable Payers Payer Name Policy Type Policy Effective Date Expiration Date Sour ce Number MEDICAREMEDICARE PART [id number] 2007 [facility] [facility] A AND 00:00:00 [facility] [id number] 2006 [place] [id number] Met vidal [id number] 2011-Present 00:00:00 Hos pital edicaid Problems Condition Condition Condition Status Onset Resolution Last Treating Co mments Source Name Details Category Date Date Treatment Clinician Date Acute Acute Disease Active 2017-12 Methodi ischemic ischemic 12-20 multifocal multifocal 00:00: Ho spita multiple multiple 00 l vascular vascular territorie territorie s stroke s stroke Left arm Left arm Disease Active 2017-12 Metho di weakness weakness 12-20 00:00: Hospita 00 l Poorly Poorly Disease Active 2017-12 Methodi controlled controlled 12-20 diabetes diabetes 00:00: Hospit a mellitus mellitus 00 l Aphasia Aphasia Disease Active 2017-12 Methodi 12-20 00:00: Hospita 00 l Other Other Disease Active 2017-12 Methodi headache headache 12-20 syndrome syndrome 00:00: Hospit a 00 l Lupus Lupus Disease Active 2017-12 Methodi 1-[facility] 00:00: Hospita 00 l Left Left Disease Active [facility] - lobe lobe 00:00: Medical infarction infarction 00 Ce nter Disorienta Disorienta Disease Active [facility] tion tion 9-16 [facility] - 00:[facility]: Medical 00 Center Atheroscle Problem Active 2021-07-10 M emoria rosis of 03:01:38 l [place] arteries [facility]roscle [facility] [place] with arteries intermitte of the nt extremitie claudicati s with on intermitte nt claudicati on Active Problem Ana Perez Pure Problem Active 2021-07-10 Memor ia hyperchole 03:01:38 l sterolemia Pure Pascual n hyperchole sterolemia Active Problem 07/10/2021 Ana Perez Benign Problem Active 2021-07-10 Memor ia hypertensi 03:01:38 l ve heart Benign Pascual n disease hypertensi without ve heart heart disease failure without heart failure Active Problem 07/10/2021 Ana Perez Atheroscle Diagnosis Active 2021-07-10 Memoria rosis of 03:01:38 l [place] arteries Atheroscle of rosis of extremitie [place] with arteries intermitte of nt extremitie claudicati s with on, intermitte unspecifie nt d claudicati extremity on, unspecifie d extremity Active Diagnosis 07/10/2021 Ana Perez Ex-smoker Diagnosis Active 2021-07-10 Memoria 03:01:38 l [place] Ex-smoker Active Diagnosis 07/10/2021 Ana Perez Other Diagnosis Active 2021-07-10 Mem oria specified 03:01:38 l symptoms Other [place] and signs specified involving symptoms the and signs mass spectrometry specialist involving y and the respirator mass spectrometry specialist y systems y and respirator y systems Active Diagnosis 07/10/2021 Ana Perez Uncontroll Diagnosis Active 2021-07-10 Memoria ed type 2 03:01:38 l diabetes [place] mellitus Uncontroll with ed type 2 hyperglyce diabetes fili mellitus with hyperglyce fili Active Diagnosis 07/10/2021 Ana Perez Palpitatio Diagnosis Active 2021-07-10 Memoria ns 03:01:38 l [place] Palpitatio ns Active Diagnosis 07/10/2021 Ana Perez Shortness Diagnosis Active 2021-07-10 Memoria of breath 03:01:38 l [place] Shortness of breath Active Diagnosis 07/10/2021 Ana Perez Precordial Diagnosis Active 2021-07-10 Memoria pain 03:01:38 l [place] Precordial pain Active Diagnosis 07/10/2021 Ana Perez Abnormal Diagnosis Active 2021-07-10 M emoria electrocar 03:01:38 l diogram Abnormal Anu nn [ECG] electrocar [EKG] diogram [ECG] [EKG] Active Diagnosis 07/10/2021 Ana Perez Cerebrovas Problem Active 2021-07-10 M emoria cular 03:01:38 l accident [place] (CVA), Cerebrovas unspecifie cular d accident mechanism (CVA), unspecifie d mechanism Active Problem 07/10/2021 Ana Perez Diabetes Problem Active 2021-07-10 Mem oria mellitus 03:01:38 l without Diabetes Anu nn mention of mellitus complicati without on, 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 Family History Family Member Diagnosis Comments Start Date Stop Date Source Natural father Cancer [facility] Natural father Diabetes [facility] Natural father Heart disease [facility] father Thyroid disease [facility] mother Heart disease [facility] mother Hypertension [facility] Social History Social Habit Start Date Stop Date Quantity Comments Source Sex Assigned At [facility] Tobacco use and 2021-07-11 2021-07-11 Never used Christian exposure 00:00:00 00:00:00 Hospital Alcohol intake 2021-07-11 2021-07-11 Current Christian 00:00:00 00:00:00 non-drinker of Hospital alcohol (finding) Tobacco Comment 2021-07-11 2021-07-11 Tobacco cessation [facility]00:00 07/11/21 pt no Hospital longer smokes. Es. History of 2018-07-03 Current smoker Christian tobacco use 00:00:00 Hospital Diet: 2015-10-17 2015-10-17 Lois Brennan nn 00:00:00 00:00:00 Smoking Status Start Date Stop Date Source Former smoker 2018-08-26 00:00:00 2018-08-26 00:00:00 [facility] Medications Ordered Filled Start Stop Current Ordering Indication Dosage Frequency Signature Comments Components Source Medication Medication Date Date Medication? Clinician (SIG) Name Name Levothyroxi Yes Ahmed 1 tablet M emoria ne Sodium 07-10 Ahmed on an l 03:01: empty 38 stomach in the morning Lantus Yes Ahmed not Memoria 8-09 Ahmed defined l 03:01: ADVAIR Yes Ahmed not Memoria 8-09 Ahmed defined l 03:01: Gabapentin Yes Ahmed 1 capsule M emoria 8-09 Ahmed l 03:01: NovoLog Yes Ahmed as Memoria 8-09 Ahmed directed l 03:01: Omeprazole Yes Ahmed 1 capsule M emoria 8-09 Ahmed 30 minutes l 03:01: before morning meal Tramadol Yes Ahmed 1 tablet Jimbo aurelio HCl 7-04 Ahmed as needed l 03:43: Narco 2018- Yes Ahmed as direct Memori a 4-23 Ahmed l 02:58: Synthroid 2018-0 Yes Ahmed 1 tablet Mem oria 4-23 Ahmed l 02:58: Tylenol/Cod 2018-0 Yes Ahmed 1 tablet M emoria eine #3 4-23 Ahmed as needed l 02:58: Advil 2018-0 Yes Ahmed not Memoria 4-23 Ahmed defined l 02:58: Synthroid 2018- Yes Ahmed 1 tablet Mem oria 4-23 Ahmed l 02:58: GlipiZIDE Yes Ahmed 1 tablet Mem oria -23 Ahmed l 02:58: Lorazepam Yes Ahmed 1 tablet Mem oria -23 Ahmed as needed l 02:58: levothyroxi 2017-12 Yes Take by Met hodi ne sodium 1-[address] (LEVOTHYROX 17:12: Hospit a INE ORAL) 16 l NOVOLOG 2017-12 Yes 20U [id number] 20 Units 3 Methodi FLEXPEN -07 [id number] (three) st U-100 00:00: 3D times a Hospita INSULIN 100 00 day. l unit/mL insulin pen predniSONE Yes 10mg QD Take [address] (DELTASONE) 9-20 by mouth Luke s - 10 MG 03:41: daily. Medical tablet 43 Center folic acid Yes 1mg QD Take [address] (FOLVITE) 1 9-20 by mouth Luke s - MG tablet 03:41: daily. Medica l 43 Center methotrexat Yes Q7D Take by [facility] 2.5 MG 9-20 mouth once [facility] - tablet 03:41: a week Medical 43 Take 3 Center tabs every . levothyroxi Yes 137ug Take [address] ne 9-20 mcg by [facility] - (SYNTHROID, 03:41: mouth Medic al LEVOTHROID) 43 Every Center 137 MCG morning on tablet an empty stomach Take 2 tabs in a.m . Narco 2015-12 Yes Ahmed as direct Memori a -16 Ahmed l 04:19: [place] Synthroid 2015-12 Yes Ahmed 1 tablet Mem oria 1-16 Ahmed l 04:19: [place] 04 Lorazepam 2015-12 Yes Ahmed 1 tablet Mem oria 1-16 Ahmed as needed l 04:19: [place] GlipiZIDE 2015-12 Yes Ahmed 1 tablet Mem oria 1-16 Ahmed l 04:19: [place] Advil 2015-12 Yes Ahmed Unknown Memoria 1-16 Ahmed l 04:19: [place] Tylenol/Cod 2015-12 Yes Ahmed 1 tablet M emoria eine #3 -16 Ahmed as needed l 04:19: [place] 04 ADVAIR 2015- Yes Ahmed Unknown Memoria -16 Ahmed l 04:19: [place] 04 Lantus 2015- Yes Ahmed Unknown Memoria -16 Ahmed l 04:19: [place] 04 Synthroid 2015- Yes Ahmed 1 tablet Mem oria -16 Ahmed l 04:19: [place] 04 Vital Signs Vital Name Observation Time Observation Value Comments Source Weight 2020-11-16 19:30:00 [facility] [place] Height 2020-11-16 19:30:00 [facility] [place] Heart Rate 2020-11-16 19:30:00 [facility] [place] Diastolic (mm Hg) 2020-11-16 19:30:00 Mem orial [place] Systolic (mm Hg) 2020-11-16 19:30:00 Jimbo rial [place] Weight 2020-02-24 16:30:00 [facility] [place] Heart Rate 2020-02-24 16:30:00 [facility] [place] Diastolic (mm Hg) 2020-02-24 16:30:00 Mem orial [place] Systolic (mm Hg) 2020-02-24 16:30:00 Jimbo rial [place] Weight 2019-09-15 18:00:00 [facility] [place] Heart Rate 2019-09-15 18:00:00 [facility] [place] Diastolic (mm Hg) 2019-09-15 18:00:00 Mem orial [place] Systolic (mm Hg) 2019-09-15 18:00:00 Jimbo rial [place] Weight 2018-08-26 15:30:00 [facility] [place] Heart Rate 2018-08-26 15:30:00 [facility] [place] Diastolic (mm Hg) 2018-08-26 15:30:00 Mem orial [place] Systolic (mm Hg) 2018-08-26 15:30:00 Jimbo rial [place] Weight 2015-10-17 20:30:00 [facility] [place] Heart Rate 2015-10-17 20:30:00 [facility] [place] Diastolic (mm Hg) 2015-10-17 20:30:00 Mem orial [place] Systolic (mm Hg) 2015-10-17 20:30:00 Jimbo rial [place] Procedures This patient has no known procedures. Plan of Care Planned Activity Planned Date Details Comments Source Future Scheduled 2021-08-[address] [facility] (procedure) [code = Medical Center [id number]] Future Scheduled 2021-08-[address] [facility] - Test 00:00:00 (Season Ended) [code = Medic al Center INFLUENZA VACCINE (Season Ended)] Future Scheduled 2021 PNEUMOCOCCAL 65+ YRS [facility] - Test 00:00:00 (1 of 1 - Medical Center [id number]) [code = PNEUMOCOCCAL 65+ YRS (1 of 1 - [id number] PCV13)] Future Scheduled 2020-12-[address] [facility] - Test 00:00:00 (12+) [code = Medical Center DEPRESSION SCREENING (12+)] Future Scheduled 2019-02-[address] [facility] - Test 00:00:00 measurement [facility] Center (procedure) [code = 56899564] Future Scheduled 2008-11-[address] [facility] - Test 00:00:00 WELLNESS (YEAR 2 or Medical Center FIRST YEAR if no IPPE) [code = MEDICARE ANNUAL WELLNESS (YEAR 2 or FIRST YEAR if no IPPE)] Future Scheduled 2006 SHINGLES VACCINES ([address] [facility] - Test 00:00:00 of 2) [code = SHINGLES Medic fl Center VACCINES (1 of 2)] Future Scheduled [address] [facility] - Test 00:00:00 malignant neoplasm of [facility] cervix (procedure) [code = 083598310] Future Scheduled 1975 DTAP/TDAP/TD VACCINES [facility] - Test 00:00:00 (1 - Tdap) [code = Medical C enter DTAP/TDAP/TD VACCINES (1 - Tdap)] Future Scheduled 1968 COVID-19 VACCINE (1) [facility] - Test 00:00:00 [code = COVID-[address] VACCINE (1)] Future Scheduled 1966 Urine screening for [facility] - Test 00:00:00 protein (procedure) [facility] Center [code = 411797749] Future Scheduled 1966 DIABETIC EYE EXAM [facility] - Test 00:00:00 [code = DIABETIC EYE Medical Center EXAM] Future Scheduled [address] [facility] - Test 00:00:00 malignant neoplasm of [facility] breast (procedure) [code = 149151652] Future Scheduled [address] [facility] - Test 00:00:00 malignant neoplasm of [facility] colon (procedure) [code = 778906467] Future Scheduled 65+ [facility]OCOCCAL [facility] Test VACCINE (1 of 2 - PPSV23) [code = 65+ PNEUMOCOCCAL VACCINE (1 of 2 - PPSV23)] Future Scheduled DIABETES: RETINAL [facility] EXAM [code = DIABETES: RETINAL EYE EXAM] Future Scheduled DIABETIC [facility]OT [facility] [code = DIABETIC FOOT EXAM] Future Scheduled URINE MICROALBUMIN [facility] Test [code = URINE MICROALBUMIN] Future Scheduled COVID-19 [facility]ACCINE (1) [facility] [code = COVID-19 VACCINE (1)] Future Scheduled Hep[facility] C [facility] Test (procedure) [code = 021529355] Future Scheduled [facility] Test malignant neoplasm of cervix (procedure) [code = 616019352] Future Scheduled BREAST CANCER [facility] Test SCREENING [code = BREAST CANCER SCREENING] Future Scheduled COLONOSCOPY [facility]ING [facility] Test [code = COLONOSCOPY SCREENING] Future Scheduled SHINGLES VACCINES (#1) [facility] [code = SHINGLES VACCINES (#1)] Future Scheduled [facility]ACCINE [facility] [code = INFLUENZA VACCINE] Encounters Start End Encounter Admission Attending Care Care Encounter Source Date/Time Date/Time Type Type Clinicians Facility Department ID 2021-07-11 2021-07-11 Documentat Elias [id number] Methodi 00:00:00 00:00:00 ion Katherine [id number] [id number] Hospit a .[id number] l .8 2020-11-16 2020-11-16 Outpatient Ana Perez [id number] eClinic 14:30:00 14:30:00 Cardiolog Cardiology a Bethany LUCIO 2020-02-24 2020-02-24 Outpatient Ana Perez [id number] eClinic 11:30:00 11:30:00 Cardiolog Cardiology pato Lucio 2019-09-15 2019-09-15 Outpatient Clear Ehrenberg [id number] eClinic 13:00:00 13:00:00 [facility] Pa cular Care Naveed 2018-08-26 2018-08-26 Outpatient Ana Murraygabriel [id number] eClinic 10:45:00 10:45:00 Cardiolog Cardiology a Roxanne y Naveed Lucio 2018-08-26 2018-08-26 Outpatient Ana Perez [id number] eClinic 10:30:00 10:30:00 Cardiolog Cardiology a lWchidi y Naveed Lucio 2015-10-17 2015-10-17 f/u nullFlavo Ana [id number] -[id number] Memoria 20:30:00 20:30:00 testing r MD Ana, [id number] l NAVEED [id number] Anu nn [id number] 2015-10-17 2015-10-17 Outpatient Ana Murraygabriel [id number] eClinic 14:30:00 14:30:00 Ana Perez MD, Aysha murillo MD, NAVEED LUCIO Results Test Description Test Time Test Comments Results Result Comments Source MISCELLANEOUS LAB ORDER 2018-08-27 07:33:00 Test Item Value Reference Range Interpretation Comme nts SCAN RESULT (test code = 0075049) MISCELLANEOUS LAB [id number] 10:23:00 Test Item Value Reference Range Interpretation Comments SCAN RESULT (test code = 0699496) IGG INDEX (CSF + BLOOD)2018-08-25 10:20:00 Test Item Value Reference Range Interpretation Comments SCAN RESULT (test code = 4728377) CSF CULTURE + GRAM [id number] 09:57:00 Test Item Value Reference Range Interpretation Comments CULTURE (BEAKER) (test No growth code = 1095) GRAM STAIN RESULT No White blood cells (BEAKER) (test code = seen 1123) GRAM STAIN RESULT No organisms seen (BEAKER) (test code = 39406) BLOOD [id number] 06:00:00 Test Item Value Reference Range Interpretation Comments CULTURE (BEAKER) (test No growth in 5 days code = 1095) HSV 1/2 PCR, [id number] 13:25:00 Test Item Value Reference Range Interpretation Comments HSV BY PCR (BEAKER) (test code = NEGATIVE NEGATIVE 334) Herpes Simplex Virus (HSV) not detected.These assays were performed by real-time PCR utilizing [...] and its performance characteristics determined by the [facility] Pathology Department, Section of Molecular Pathology. It has not been cleared or approved by the U.S. Food and Drug Administration (FDA), as FDA approval is not required for clinical use of the test. Validation was done as required by the Clinical Laboratory Amendments of 1988.[id number] 12:12:00Medical Cytology Report Case: [id number] Authorizing Provider: Liset Boss MD Collected: 08/20/2018 1136 Ordering Location: [address] Received: 08/20/2018 1551 Service Pathologist: Claire Puckett Specimen: CSF CEREBROSPINAL FLUID (CYTOSPINS): - NEGATIVE FOR MALIGNANCY Signing Pathologist Direct Phone Line: [phone] signed by Claire Puckett on 08/21/2018 at 12:12 [id number] mental status, history of lupusCEREBROSPINAL FLUID (CYTOSPINS)1 ml colorless; 2 cytospinsCollected: [id number]: [id number] 8[facility], Department of [facility]ology, [address] [place] [address], [facility], [facility] of [facility], [address] [place] [address], [id number] ANTIGEN, [id number] 01:32:00 Test Item Value Reference Range Interpretation Comments CRYPTOCOCCAL ANTIGEN, CSF Negative Negative, Interference (BEAKER) (test code = 673) VDRL, [id number] 01:24:00 Test Item Value Reference Range Interpretation Comments SYPHILIS VDRL QUANTITATION CSF Nonreactive Nonreactive (BEAKER) (test code = 747) POCT-GLUCOSE [id number] 21:11:00 Test Item Value Reference Range Interpretation Comments POC-GLUCOSE METER 450 mg/dL 70-110 HH TESTED AT [facility] 6720 (BEAKER) (test code = [place] 1538) [address] [place], LUMBAR PUNCTURE, [id number] 15:12:00Reason for exam:->delirium, concern for encephalitis -- needs to be done under anesthesia due to a gitationCall daughter for consent -- [phone] REPORT REFERRING PHYSICIAN: Liset Boss M.D. PROCEDURE: [...] guided diagnostic lumbar puncture. Signed: Ya Archer MDReport Verified Date/Time: 08/20/2018 15:12:33 Reading Location: [address] Neuro Reading Room CSF CELL COUNT [id number] 15:06:00 Test Item Value Reference Range Interpretation Comments APPEARANCE CSF (BEAKER) (test Clear Clear code = 407) COLOR CSF (BEAKER) (test code Colorless Colorless = 408) RBC CSF (BEAKER) (test code = 1 /cu mm 0-5 409) WBC CSF (BEAKER) (test code = 6 /cu mm <=5 H 1020) RBCS FRESH (BEAKER) (test code 100% Fresh = 1444) NUMBER OF CELLS DIFF'D 10 (BEAKER) (test code = 1591) NEUTROPHIL, CSF (BEAKER) (test 0 % 0-5 code = 324) LYMPHS CSF (BEAKER) (test code 70 % 40-80 = 438) MONO/MACROPHAGE CSF (BEAKER) 30 % 15-45 (test code = 439) EOSINOPHILS CSF (BEAKER) (test 0 % <=0 code = 360) BASO CSF (BEAKER) (test code = 0 % <=0 440) TUBE NUMBER CSF (BEAKER) (test EDTA (Tube #4) code = 2678) AUGIE INK [id number] 13:53:00 Test Item Value Reference Range Interpretation Comments AUGIE INK No encapsulated yeast No encapsulated yeast (BEAKER) (test seen seen code = 1612) GLUCOSE, [id number] 13:45:00 Test Item Value Reference Range Interpretation Comments GLUCOSE CSF (BEAKER) (test code = 135 mg/dL 40-70 H 406) PROTEIN, [id number] 13:45:00 Test Item Value Reference Range Interpretation Comments PROTEIN CSF (BEAKER) (test code = 50 mg/dL 15-45 H 378) MR, BRAIN, [id number] 13:28:00Under sedation with anesthesia (get consent from patient's daughter ([phone])FINAL REPORT MRI Brain with and without contrast [...] extra-axial collection. There is a tiny chronic infarctin [...] chronic ischemic changes as discussed. Signed: Mehdi Pyle Verified Date/Time: 08/20/2018 13:28:43 Reading Location: [facility] Radiology Reading Room PT/APTT 2018-08-20 09:26:00 Test Item Value Reference Range Interpretation Comments PROTIME ([facility] (test code = 13.5 seconds 11.7-14.7 759) INR ([facility] (test code = 370) 1.0 <=5.9 PARTIAL THROMBOPLASTIN TIME 22.8 seconds 22.5-36.0 ([facility] (test code = 760) RECOMMENDED COUMADIN/WARFARIN INR THERAPY RANGESSTANDARD DOSE: 2.0 - 3.0 Includes: PROPHYLAXIS forvenous thrombosis, systemic embolization; TREATMENT for venous thrombosis and/or pulmonary embolus.HIGH RISK: Target INR is 2.5-3.5 for patients with mechanical heart valves.POCT-GLUCOSE [id number] 08:02:00 Test Item Value Reference Range Interpretation Comments POC-GLUCOSE METER 276 mg/dL 70-110 H TESTED AT [place] [address] ([facility] (test code = GUY Spe[place] [facility] 1538) [address] POCT-GLUCOSE [id number] 03:49:00 Test Item Value Reference Range Interpretation Comments POC-GLUCOSE METER 284 mg/dL 70-110 H TESTED AT [place] [address] ([facility] (test code = GUY [place] [facility] 1538) [address] POCT-GLUCOSE [id number] 20:53:00 Test Item Value Reference Range Interpretation Comments POC-GLUCOSE METER 250 mg/dL 70-110 H TESTED AT [place] [address] ([facility] (test code = ORALIAMD Beatris [facility] 1538) [address] POCT-GLUCOSE [id number] 16:51:00 Test Item Value Reference Range Interpretation Comments POC-GLUCOSE METER 316 mg/dL 70-110 H TESTED AT [place] [address] ([facility] (test code = [facility] [employer] [facility] 1538) [address] EEG AWAKE AND [id number] 16:33:00Reason for exam:->aphasia with waxing and waning symptoms. new bilateral lesionsNeurophysiology EEG Report Patient Name: Eve Jose DATE OF EE08/19/18 DATE OF REPORT: 08/19/18 ACC: [id number] EE Start time: 1305 PM Stop time: 1326 PM ICD-10: R41.82 Altered Mental Status CPT Code: 77358 (Awake and Asleep EEG) HISTORY: 53 year [...] reports available for comparison. Cecelia Junior, PGY4 [facility] Department of Neurology Gilda Chandra MDEpilepsy FellowCLE[facility] Neurophysiology Service Daysi Marques MDEpilepsy Attending POCT-GLUCOSE [id number] 12:17:00 Test Item Value Reference Range Interpretation Comments POC-GLUCOSE METER 240 mg/dL 70-110 H TESTED AT [facility] 6720 (BEAKER) (test code = [place] 1538) [address] URINE [id number] 10:49:00 Test Item Value Reference Range Interpretation Comments CULTURE (BEAKER) (test 10-19,000 col/mL skin code = 1095) sowmya POCT-GLUCOSE [id number] 08:30:00 Test Item Value Reference Range Interpretation Comments POC-GLUCOSE METER 187 mg/dL 70-110 H TESTED AT [place] [address] ([facility] (test code = GUY Spe[place] [facility] 1538) [address] POCT-GLUCOSE [id number] 22:25:00 Test Item Value Reference Range Interpretation Comments POC-GLUCOSE METER 183 mg/dL 70-110 H TESTED AT [place] [address] ([facility] (test code = [facility] Beatris [facility] 1538) [address] POCT-GLUCOSE [id number] 08:38:00 Test Item Value Reference Range Interpretation Comments POC-GLUCOSE METER 246 mg/dL 70-110 H TESTED AT [place] [address] ([facility] (test code = [facility] 1538) [address] HEMOGLOBIN [id number] 08:29:00 Test Item Value Reference Range Interpretation Comments HEMOGLOBIN A1C (BEAKER) (test code = 8.5 % 4.3-6.1 H 368) VITAMIN [id number] 06:38:00 Test Item Value Reference Range Interpretation Comments VITAMIN B12 (BEAKER) (test code = < pg/mL 213-816 L 774) BASIC METABOLIC [id number] 05:58:00 Test Item Value Reference Range Interpretation Comments SODIUM (BEAKER) 140 meq/L 136-145 (test code = 381) POTASSIUM (BEAKER) 4.0 meq/L 3.5-5.1 (test code = 379) CHLORIDE (BEAKER) 105 meq/L 98-107 (test code = 382) CO2 (BEAKER) (test 26 meq/L 22-29 code = 355) BLOOD UREA NITROGEN 13 mg/dL 7-21 (BEAKER) (test code = 354) CREATININE (BEAKER) 0.72 mg/dL 0.57-1.25 (test code = 358) GLUCOSE RANDOM 224 mg/dL 70-105 H (BEAKER) (test code = 652) CALCIUM (BEAKER) 9.5 mg/dL 8.4-10.2 (test code = 697) EGFR (BEAKER) (test 82 mL/min/1.73 INSUFF ICIENT CLINICAL code = 1092) sq m DATA TO CALCULA TE ESTIMATED GFR. CBC W/PLT COUNT & AUTO [id number] 05:09:00 Test Item Value Reference Range Interpretation Comments WHITE BLOOD CELL COUNT (BEAKER) 9.6 K/ L 3.5-10.5 (test code = 775) RED BLOOD CELL COUNT (BEAKER) 4.23 M/ L 3.93-5.22 (test code = 761) HEMOGLOBIN (BEAKER) (test code = 12.1 GM/DL 11.2-15.7 410) HEMATOCRIT (BEAKER) (test code = 37.3 % 34.1-44.9 411) MEAN CORPUSCULAR VOLUME (BEAKER) 88.2 fL 79.4-94.8 (test code = 753) MEAN CORPUSCULAR HEMOGLOBIN 28.6 pg 25.6-32.2 (BEAKER) (test code = 751) MEAN CORPUSCULAR HEMOGLOBIN CONC 32.4 GM/DL 32.2-35.5 (BEAKER) (test code = 752) RED CELL DISTRIBUTION WIDTH 13.0 % 11.7-14.4 (BEAKER) (test code = 412) PLATELET COUNT (BEAKER) (test 340 K/CU MM 150-450 code = 756) MEAN PLATELET VOLUME (BEAKER) 10.2 fL 9.4-12.3 (test code = 754) NUCLEATED RED BLOOD CELLS 0 /100 WBC 0-0 (BEAKER) (test code = 413) NEUTROPHILS RELATIVE PERCENT 59 % (BEAKER) (test code = 429) LYMPHOCYTES RELATIVE PERCENT 30 % (BEAKER) (test code = 430) MONOCYTES RELATIVE PERCENT 8 % (BEAKER) (test code = 431) EOSINOPHILS RELATIVE PERCENT 3 % (BEAKER) (test code = 432) BASOPHILS RELATIVE PERCENT 0 % (BEAKER) (test code = 437) NEUTROPHILS ABSOLUTE COUNT 5.71 K/ L 1.56-6.13 (BEAKER) (test code = 670) LYMPHOCYTES ABSOLUTE COUNT 2.85 K/ L 1.18-3.74 (BEAKER) (test code = 414) MONOCYTES ABSOLUTE COUNT (BEAKER) 0.72 K/ L 0.24-0.36 H (test code = 415) EOSINOPHILS ABSOLUTE COUNT 0.28 K/ L 0.04-0.36 (BEAKER) (test code = 416) BASOPHILS ABSOLUTE COUNT (BEAKER) 0.04 K/ L 0.01-0.08 (test code = 417) IMMATURE GRANULOCYTES-RELATIVE 0 % 0-1 PERCENT (PIA) (test code = 2801) [id number] 03:03:00 Test Item Value Reference Range Interpretation Comments RPR SCREEN (PIA) (test code = Nonreactive Nonreactive 420) RAD, CHEST, 2 [id number] 22:51:00Reason for exam:->altered mental status with leukocytosis, [...] No focal pulmonary consolidation. Signed: Florin Moura Verified Date/Time: 08/17/2018 22:51:33 Reading Location: [facility] C013Y CT Body Reading Room POCT-GLUCOSE [id number] 22:23:00 Test Item Value Reference Range Interpretation Comments POC-GLUCOSE METER 325 mg/dL 70-110 H Notified Beatris Strong MD/TESTED (PIA) (test code = AT [place] [address]) [facility] 7703 0 POCT-GLUCOSE [id number] 17:17:00 Test Item Value Reference Range Interpretation Comments POC-GLUCOSE METER 335 mg/dL 70-110 H Notified Beatris Strong MD/TESTED (PIA) (test code = AT [place] [address]) [facility] 7703 0 T4, [id number] 14:09:00 Test Item Value Reference Range Interpretation Comments FREE T4 (PIA) (test code = 655) 1.21 ng/dL 0.70-1.48 TSH/FREE T4 IF [id number] 12:56:00 Test Item Value Reference Range Interpretation Comments THYROID STIMULATING HORMONE 0.15 uIU/mL 0.35-4.94 L (PIA) (test code = 772) URINALYSIS WITH MICROSCOPIC IF [id number] 12:47:00 Test Item Value Reference Range Interpretation Comments COLOR (BEAKER) (test code = 470) Yellow CLARITY (BEAKER) (test code = Clear 469) SPECIFIC GRAVITY UA (BEAKER) 1.029 1.001-1.035 (test code = 468) PH UA (BEAKER) (test code = 467) 5.0 5.0-8.0 PROTEIN UA (BEAKER) (test code = Negative Negative 464) GLUCOSE UA (BEAKER) (test code = >1000 mg/dL Negative A 365) KETONES UA (BEAKER) (test code = 40 mg/dL Negative A 371) BILIRUBIN UA (BEAKER) (test code Negative Negative = 462) BLOOD UA (BEAKER) (test code = Negative Negative 461) NITRITE UA (BEAKER) (test code = Negative Negative 465) LEUKOCYTE ESTERASE UA (BEAKER) Moderate Negative A (test code = 466) UROBILINOGEN UA (BEAKER) (test 0.2 mg/dL 0.2-1.0 code = 463) SOURCE(BEAKER) (test code = 2795) URINALYSIS [id number] 12:47:00 Test Item Value Reference Range Interpretation Comments RBC UA (BEAKER) (test code = 519) 3 /HPF WBC UA (BEAKER) (test code = 520) 50 /HPF MUCUS (BEAKER) (test code = 1574) Rare SQUAMOUS EPITHELIAL (BEAKER) (test 1 /HPF code = 516) HEPATITIS B [id number] 12:23:00 Test Item Value Reference Range Interpretation Comments HEPATITIS B CORE TOTAL ANTIBODY Reactive Nonreactive A (BEAKER) (test code = 497) HEPATITIS B SURFACE ANTIBODY < mIU/mL <8.0 (BEAKER) (test code = 647) HEPATITIS B SURFACE ANTIGEN (2) Nonreactive Nonreactive (BEAKER) (test code = 2585) POCT-GLUCOSE [id number] 12:10:00 Test Item Value Reference Range Interpretation Comments POC-GLUCOSE METER 338 mg/dL 70-110 H TESTED AT [facility] 6720 (BEAKER) (test code = [place] 1538) [address] HEPATITIS A [id number] 10:50:00 Test Item Value Reference Range Interpretation Comments HEPATITIS A IGM ANTIBODY (BEAKER) Nonreactive Nonreactive (test code = 498) HEPATITIS A IGG ANTIBODY (BEAKER) Nonreactive Nonreactive (test code = 2797) HIV-1 ANTIGEN WITH HIV-1/2 [id number] 10:50:00 Test Item Value Reference Range Interpretation Comments HIV-1 ANTIGEN WITH HIV 1\T\2 Nonreactive Nonreactive ANTIBODY (2) (BEAKER) (test code = 2586) HEPATITIS C [id number] 10:49:00 Test Item Value Reference Range Interpretation Comments HEPATITIS C ANTIBODY (BEAKER) Nonreactive Nonreactive (test code = 367) HEPATIC FUNCTION [id number] 10:26:00 Test Item Value Reference Range Interpretation Comments TOTAL PROTEIN (BEAKER) (test code = 6.9 gm/dL 6.0-8.3 770) ALBUMIN (BEAKER) (test code = 1145) 4.0 g/dL 3.5-5.0 BILIRUBIN TOTAL (BEAKER) (test code 0.5 mg/dL 0.2-1.2 = 377) BILIRUBIN DIRECT (BEAKER) (test 0.2 mg/dL 0.1-0.5 code = 706) ALKALINE PHOSPHATASE (BEAKER) (test 76 U/L 40-150 code = 346) AST (SGOT) (BEAKER) (test code = 9 U/L 5-34 353) ALT (SGPT) (BEAKER) (test code = 15 U/L 6-55 347) LACTIC ACID, VENOUS, WHOLE [id number] 10:20:00 Test Item Value Reference Range Interpretation Comments LACTATE BLOOD VENOUS (2) (BEAKER) 1.2 mmol/L 0.5-2.2 (test code = 2872) Effective 04/04/2016: Units/Reference Range ChangeNew: 0.5-2.2 mmol/L Previous: 5-20 mg/[id number] 10:17:00 Test Item Value Reference Range Interpretation Comments AMMONIA (BEAKER) (test code = 348) 24 mol/L 18-72 HEMOGLOBIN [id number] 10:16:00 Test Item Value Reference Range Interpretation Comments HEMOGLOBIN A1C (BEAKER) (test code = 8.6 % 4.3-6.1 H 368) FastingPOCT-GLUCOSE [id number] 09:22:00 Test Item Value Reference Range Interpretation Comments POC-GLUCOSE METER 278 mg/dL 70-110 H TESTED AT [facility] 6720 (BEAKER) (test code = [facility] 1538) [address] POCT-GLUCOSE [id number] 06:19:00 Test Item Value Reference Range Interpretation Comments POC-GLUCOSE METER 304 mg/dL 70-110 H TESTED AT [facility] 6720 (BEAKER) (test code = [place] [facility] 1538) [address] [id number] 05:16:00 Test Item Value Reference Range Interpretation Comments MAGNESIUM (BEAKER) 2.0 mg/dL 1.6-2.6 Specimen slightly (test code = 627) hemolyzed [id number] 05:16:00 Test Item Value Reference Range Interpretation Comments PHOSPHORUS (BEAKER) 3.0 mg/dL 2.3-4.7 Specimen slightly (test code = 604) hemolyzed BASIC METABOLIC [id number] 05:16:00 Test Item Value Reference Range Interpretation Comments SODIUM (BEAKER) 138 meq/L 136-145 (test code = 381) POTASSIUM (BEAKER) 4.2 meq/L 3.5-5.1 Specimen slightly (test code = 379) hemolyzed CHLORIDE (BEAKER) 104 meq/L 98-107 (test code = 382) CO2 (BEAKER) (test 23 meq/L 22-29 code = 355) BLOOD UREA NITROGEN 11 mg/dL 7-21 (BEAKER) (test code = 354) CREATININE (BEAKER) 0.78 mg/dL 0.57-1.25 Specimen slightly (test code = 358) hemolyzed GLUCOSE RANDOM 303 mg/dL 70-105 H (BEAKER) (test code = 652) CALCIUM (BEAKER) 9.4 mg/dL 8.4-10.2 (test code = 697) EGFR (BEAKER) (test 75 mL/min/1.73 INSUFF ICIENT CLINICAL code = 1092) sq m DATA TO CALCULA TE ESTIMATED GFR. LIPID [id number] 05:16:00 Test Item Value Reference Range Interpretation Comments TRIGLYCERIDES (BEAKER) 112 mg/dL Speci men slightly (test code = 540) hemolyzed CHOLESTEROL (BEAKER) 210 mg/dL Specime n slightly (test code = 631) hemolyzed HDL CHOLESTEROL (BEAKER) 44 mg/dL (test code = 976) LDL CHOLESTEROL 144 mg/dL CALCULATED (BEAKER) (test code = 633) Triglyceride Reference Range: Low Risk <150 Borderline 150-199 High Risk 200-499 Very High Risk >=500Cholesterol Reference Range: Low Risk <200 Borderline 200-239 High Risk >240HDL Cholesterol Reference Range: Low Risk >=60 High Risk <40LDL Cholesterol Reference Range: Optimal <100 Near Optimal 100-129 Borderline 130-159 High 160-189 Very High >=190CBC W/PLT COUNT & AUTO [id number] 04:56:00 Test Item Value Reference Range Interpretation Comments WHITE BLOOD CELL COUNT (BEAKER) 11.2 K/ L 3.5-10.5 H (test code = 775) RED BLOOD CELL COUNT (BEAKER) 4.56 M/ L 3.93-5.22 (test code = 761) HEMOGLOBIN (BEAKER) (test code = 13.0 GM/DL 11.2-15.7 410) HEMATOCRIT (BEAKER) (test code = 39.8 % 34.1-44.9 411) MEAN CORPUSCULAR VOLUME (BEAKER) 87.3 fL 79.4-94.8 (test code = 753) MEAN CORPUSCULAR HEMOGLOBIN 28.5 pg 25.6-32.2 (BEAKER) (test code = 751) MEAN CORPUSCULAR HEMOGLOBIN CONC 32.7 GM/DL 32.2-35.5 (BEAKER) (test code = 752) RED CELL DISTRIBUTION WIDTH 12.9 % 11.7-14.4 (BEAKER) (test code = 412) PLATELET COUNT (BEAKER) (test 349 K/CU MM 150-450 code = 756) MEAN PLATELET VOLUME (BEAKER) 9.7 fL 9.4-12.3 (test code = 754) NUCLEATED RED BLOOD CELLS 0 /100 WBC 0-0 (BEAKER) (test code = 413) NEUTROPHILS RELATIVE PERCENT 71 % (BEAKER) (test code = 429) LYMPHOCYTES RELATIVE PERCENT 21 % (BEAKER) (test code = 430) MONOCYTES RELATIVE PERCENT 7 % (BEAKER) (test code = 431) EOSINOPHILS RELATIVE PERCENT 1 % (BEAKER) (test code = 432) BASOPHILS RELATIVE PERCENT 0 % (BEAKER) (test code = 437) NEUTROPHILS ABSOLUTE COUNT 7.96 K/ L 1.56-6.13 H (BEAKER) (test code = 670) LYMPHOCYTES ABSOLUTE COUNT 2.33 K/ L 1.18-3.74 (BEAKER) (test code = 414) MONOCYTES ABSOLUTE COUNT (BEAKER) 0.73 K/ L 0.24-0.36 H (test code = 415) EOSINOPHILS ABSOLUTE COUNT 0.10 K/ L 0.04-0.36 (BEAKER) (test code = 416) BASOPHILS ABSOLUTE COUNT (BEAKER) 0.03 K/ L 0.01-0.08 (test code = 417) IMMATURE GRANULOCYTES-RELATIVE 0 % 0-1 PERCENT (BEAKER) (test code = 2801) POCT-GLUCOSE [id number] 23:38:00 Test Item Value Reference Range Interpretation Comments POC-GLUCOSE METER 280 mg/dL 70-110 H TESTED AT [facility] 67 [facility] (test code = [place] 1538) [address]
--- NOTE | 2021-07-18 18:30 | ER ---
Nurse's Notes [facility] Name: Eve Jose Age: 66 yrs Sex: Female : 1955 Arrival Date: 07/18/2021 Time: 16:54 Bed Waiting Private MD: Diagnosis: ED Course: 07/18 16:54 Patient arrived in ED. mr 18:30 Patient's name was called from ER lobby. No response. Unable to locate patient. Will jl7 disposition as left without being seen by a provider. Administered Medications: No medications were administered Outcome: 18:30 Patient left the ED. jl7 Signatures: Jessica Paulino Jahala RN RN jl7
== END 2021-07-18 18:30 | disposition left against medical advice (07) ==
LOC: ER 16:45
DX: Z02.9 Encounter for administrative examinations, unspecified (principal)